=== PATIENT | male | born 1945 | race Caucasian/White ===

== ENCOUNTER 2018-03-19 05:19 | Emergency (ER) | payer MEDICARE, OTHER ==
--- NOTE | 2018-03-19 05:33 | ERPHSYRPT ---
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 he did not fall but "passed out" brieflywhile sitting on the toilet. pt pt is a [facility] pt. pt was brought into ED by EMS. SBP by EMS 80's. pt states similar episode in October 2017. Unknown why this happened. no dx provided after normal workup. pt denies headache, visual changes, cp, soa or abd pain. he denies cough. pt has not taken his medication this am. he has no n/v/d. he states he is sleepy at this time. BS 133. pt has had a CABG and cardiac stents placed in the past. (YAO RAY) Allergies/Adverse Reactions: codeine Allergy (Verified 03/19/18 05:37) Home Medications: Esomeprazole Magnesium [Nexium] 10 mg PO DAILY PRN PRN 02/03/16 [History] Insulin Glargine [Lantus Insulin] 40 unit SQ BID 02/03/16 [History] Irbesartan 150 mg [Avapro 150 MG] 150 mg PO DAILY 02/03/16 [History] Metformin HCl 1000 mg [Glucophage 1000 MG] 1,000 mg PO BID 02/03/16 [History] Aspirin EC 81 mg [Ecotrin 81 mg] 81 mg PO DAILY 03/19/18 [History] Carvedilol 6.25 mg [Coreg 6.25 MG] 6.25 mg PO BID 03/19/18 [History] Clopidogrel Bisulfate 75 mg [PLAVIX 75 MG Tablet] 75 mg PO DAILY 03/19/18 [History] Isosorbide Mononitrate 30 mg [Imdur 30 MG] 30 mg PO DAILY 03/19/18 [History ] Metformin HCl [Metformin HCl ER] 1,000 mg PO DAILY 03/19/18 [History] Ranolazine 500 MG [Ranexa 500 MG] 1,000 mg PO BID 03/19/18 [History] - Past Medical History Pertinent Past Medical History: Yes Neurological History: No Pertinent History ENT History: No Pertinent History Cardiac History: High Cholesterol, Hypertension, Myocardial Infarction (HI) Respiratory History: No Pertinent History Endocrine Medical History: Diabetes Type II Musculoskeletal History: No Pertinent History GI Medical History: GERD History: No Pertinent History Psycho-Social History: No Pertinent History Male Reproductive Disorders: No Pertinent History - Past Surgical History Past Surgical History: Yes Cardiac: CABG, Cardiac Catheterization, Cardiac Stent Respiratory: No Pertinent History Gastrointestinal: Appendectomy Genitourinary: No Pertinent History Musculoskeletal: No Pertinent History Male Surgical History: No Pertinent History - Social History Smoking Status: Never smoker Exposure to second hand smoke: No Alcohol Use: None Drug Use: none Patient Lives Alone: No Significant Family History: no pertinent family hx <YAO RAY - Last Filed: 03/19/18 07:06> - Review of Systems Constitutional: No Symptoms, No Fever, No Chills Eyes: No Symptoms, No Discharge, No Eye Pain, No Vision Changes Ears, Nose, & Throat: No Symptoms, No Ear Pain, No Nose Congestion, No Nose Discharge Respiratory: No Symptoms Cardiac: Syncope, No Chest Pain, No Palpitations Abdominal/Gastrointestinal: Nausea, No Abdominal Pain, No Vomiting, No Diarrhea , No Constipation Genitourinary Symptoms: No Symptoms, No Dysuria, No Frequency, No Hematuria, No Flank Pain Musculoskeletal: No Symptoms Skin: No Symptoms Neurological: No Symptoms, No Dizziness Psychological: No Symptoms Endocrine: No Symptoms Hematologic/Lymphatic: No Symptoms Immunological/Allergic: No Symptoms All Other Systems: Reviewed and Negative <YAO RAY - Last Filed: 03/19/18 07:06> Physical Exam - [place] Coma Scale Best Eye Response ([place]): (4) open spontaneously Best Verbal Response ([place]): (5) oriented Best Motor Response ([place]): (6) obeys commands [place] Total: 15 - Physical Exam General Appearance: mild distress, alert Eye Exam: bilateral eye: normal inspection, PERRL, EOMI Ears, Nose, Throat Exam: normal ENT inspection, TMs normal, pharynx normal, moist mucous membranes Neck Exam: normal inspection, non-tender, supple, full range of motion Respiratory: normal breath sounds, lungs clear, airway intact, No chest tenderness, No respiratory distress, No accessory muscle use, No rhonchi, No wheezing, No stridor Cardiovascular: regular rate/rhythm, normal heart sounds, normal peripheral pulses Gastrointestinal: soft, normal bowel sounds, No tenderness, No guarding, No rebound Rectal Exam: not done Back Exam: normal inspection, normal range of motion, No CVA tenderness, No vertebral tenderness Extremity Exam: normal inspection, normal range of motion, pelvis stable Mental Status: alert, 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, 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 Exam: normal hearing, normal speech, PERRL, tongue midline Coordination/Gait: normal finger to nose, abnormal gait (unsteady per ems) Motor/Sensory: no motor deficit, no sensory deficit Skin Exam: warm, dry, petechiae (new facial petechiae per pts spouse) SpO2 Interpretation: normal Oxygen Delivery: Room Air <YAO RAY - Last Filed: 03/19/18 07:06> - Nursing Vital Signs Nursing Vital Signs: Initial Vital Signs Temperature 97.1 F 03/19/18 05:20 Pulse Rate 68 03/19/18 05:20 Respiratory Rate 18 03/19/18 05:20 Blood Pressure 101/66 03/19/18 05:20 O2 Sat by Pulse Oximetry 97 03/19/18 05:20 Pain Scale Pain Intensity 0 - Course Nursing assessment & vital signs reviewed: Yes EKG Interpreted by Me: RATE (71), Sinus Rhythm, Left Presto Deviation, NORMAL INTERVALS, 1st degree AV Block, NORMAL QRS, Other (no acute st elevation) <YAO RAY - Last Filed: 03/19/18 07:06> - Radiology Exams Chest X-ray Interpretation: Interpreted by me, Negative (comp 2V chest 11/08/16.) <SAUL SMITH - Last Filed: 03/19/18 07:51> Ordered Tests: Active Orders 24 hr Category Date Time Status Clean Catch Urine Specimen STAT Care 03/19/18 05:48 Active EKG-ER Only STAT Care 03/19/18 05:48 Active Rubio [Catheter-[place] Rubio] STAT Care 03/19/18 07:26 Active IV Insertion STAT Care 03/19/18 05:48 Active Pulse Oximetry (ED) STAT Care 03/19/18 05:48 Active CHEST 1 VIEW (PORTABLE) Stat Exams 03/19/18 06:15 Taken HEAD WITHOUT CONTRAST [CT] Stat Exams 03/19/18 06:16 Ordered CBC W DIFF Stat Lab 03/19/18 05:50 Completed CMP Stat Lab 03/19/18 05:50 Completed NT PRO BNP Stat Lab 03/19/18 05:50 Completed PROTIME WITH INR Stat Lab 03/19/18 05:50 Completed TROPONIN Q3H Lab 03/19/18 05:50 Completed TROPONIN Q3H Lab 03/19/18 09:00 Ordered TROPONIN Q3H Lab 03/19/18 12:00 Ordered TROPONIN Q3H Lab 03/19/18 15:00 Ordered TROPONIN Q3H Lab 03/19/18 18:00 Ordered TROPONIN Q3H Lab 03/19/18 21:00 Ordered UA W/RFX UR CULTURE Stat Lab 03/19/18 07:13 Completed Medication Summary Generic Name Dose Route Start Last Admin Trade Name Freq PRN Reason Stop Dose Admin Sodium Chloride 1,000 mls @ 100 mls/hr 03/19/18 06:00 03/19/18 05:55 Sodium Chloride 0.9% 1000 Ml IV 04/18/18 05:59 100 mls/hr .Q10H MALICK Administration Dopamine HCl/Dextrose 250 mls @ 17.435 mls/hr 03/19/18 06:32 03/19/18 07:06 Dopamine 400 Mg/D5w 250ml Premix IV 04/18/18 06:31 7.5 mcg/kg/min .[id number] PRN 26.152 mls/hr SEVERE HYPOTENSION Titration Protocol 5 MCG/KG/MIN Discontinued Medications Generic Name Dose Route Start Last Admin Trade Name Freq PRN Reason Stop Dose Admin Famotidine Confirm 03/19/18 07:16 Pepcid 20 Mg Vial Administered 03/19/18 07:17 Dose 20 mg IV .STK-MED ONE Famotidine 20 mg 03/19/18 07:26 03/19/18 07:31 Pepcid 20 Mg Vial IV 03/19/18 07:27 20 mg STAT ONE Administration Ondansetron HCl 4 mg 03/19/18 05:49 03/19/18 05:55 Zofran 4 Mg/2 Ml Vial IV 03/19/18 05:50 4 mg STAT ONE Administration Ondansetron HCl Confirm 03/19/18 05:50 Zofran 4 Mg/2 Ml Vial Administered 03/19/18 05:51 Dose 4 mg .ROUTE .STK-MED ONE Ondansetron HCl 4 mg 03/19/18 06:51 03/19/18 06:55 Zofran 4 Mg/2 Ml Vial IV 03/19/18 06:52 4 mg STAT ONE Administration Ondansetron HCl Confirm 03/19/18 06:53 Zofran 4 Mg/2 Ml Vial Administered 03/19/18 06:54 Dose 4 mg .ROUTE .STK-MED ONE Lab/Rad Data: Laboratory Result Diagrams 03/19/18 05:50 03/19/18 05:50 Laboratory Results 03/19/18 03/19/18 03/19/18 Range/Units 07:13 05:50 05:50 WBC (4.0-10.5) K/mm3 RBC (4.1-5.6) M/mm3 Hgb (12.5-18.0) gm/dl Hct (42-50) % MCV (78-100) fl MCH (26-32) pg MCHC (32-36) g/dl RDW (11.5-14.0) % Plt Count (150-450) K/mm3 MPV (6-9.5) fl Gran % (36.0-66.0) % Eos # (Auto) (0-0.5) Absolute Lymphs (auto) (1.0-4.6) Absolute Monos (auto) (0.0-1.3) Lymphocytes % (24.0-44.0) % Monocytes % (0.0-12.0) % Eosinophils % (0.00-5.0) % Basophils % (0.0-0.4) % Absolute Granulocytes (1.4-6.9) Basophils # (0-0.4) PT 15.5 H (8.83-12.87) SECONDS INR 1.33 (0.8-3.0) Sodium (137-145) mmol/L Potassium (3.5-5.1) mmol/L Chloride (98-107) mmol/L Carbon Dioxide (22-30) mmol/L Anion Gap (5-15) MEQ/L BUN (9-20) mg/dL Creatinine (0.66-1.25) mg/dL Estimated GFR ML/MIN Glucose (74-106) mg/dL Calcium (8.4-10.2) mg/dL Total Bilirubin (0.2-1.3) mg/dL AST (17-59) U/L ALT (0-50) U/L Alkaline Phosphatase (38-126) U/L Troponin I < 0.012 (0.000-0.034) ng/mL NT-Pro-B Natriuret Pep (0-900) pg/mL Serum Total Protein (6.3-8.2) g/dL Albumin (3.5-5.0) g/dL Urine Color YELLOW (YELLOW) Urine Appearance CLEAR (CLEAR) Urine pH 6.0 (5-6) Ur Specific [place] 1.011 (1.005-1.025) Urine Protein NEGATIVE (Negative) Urine Ketones NEGATIVE (NEGATIVE) Urine Blood NEGATIVE (0-5) Gaurav/ul Urine Nitrite NEGATIVE (NEGATIVE) Urine Bilirubin NEGATIVE (NEGATIVE) Urine Urobilinogen NEGATIVE (0-1) mg/dL Ur Leukocyte Esterase NEGATIVE (NEGATIVE) Urine WBC (Auto) NONE SEEN (0-5) /HPF Urine RBC (Auto) NONE (0-2) /HPF U Epithel Cells (Auto) NONE (FEW) /HPF Urine Bacteria (Auto) NONE SEEN (NEGATIVE) /HPF Urine Mucus (Auto) SLIGHT (NEGATIVE) /HPF Urine Culture Reflexed NO (NO) Urine Glucose NEGATIVE (NEGATIVE) mg/dL 03/19/18 03/19/18 Range/Units 05:50 05:50 WBC 13.5 H (4.0-10.5) K/mm3 RBC 4.55 (4.1-5.6) M/mm3 Hgb 13.7 (12.5-18.0) gm/dl Hct 41.4 L (42-50) % MCV 91.0 (78-100) fl MCH 30.1 (26-32) pg MCHC 33.1 (32-36) g/dl RDW 14.2 H (11.5-14.0) % Plt Count 242 (150-450) K/mm3 MPV 10.9 H (6-9.5) fl Gran % 68.4 H (36.0-66.0) % Eos # (Auto) 0.56 H (0-0.5) Absolute Lymphs (auto) 2.50 (1.0-4.6) Absolute Monos (auto) 1.16 (0.0-1.3) Lymphocytes % 18.5 L (24.0-44.0) % Monocytes % 8.6 (0.0-12.0) % Eosinophils % 4.1 (0.00-5.0) % Basophils % 0.4 (0.0-0.4) % Absolute Granulocytes 9.22 H (1.4-6.9) Basophils # 0.06 (0-0.4) PT (8.83-12.87) SECONDS INR (0.8-3.0) Sodium 140 (137-145) mmol/L Potassium 4.4 (3.5-5.1) mmol/L Chloride 104 (98-107) mmol/L Carbon Dioxide 23 (22-30) mmol/L Anion Gap 17.7 H (5-15) MEQ/L BUN 19 (9-20) mg/dL Creatinine 1.00 (0.66-1.25) mg/dL Estimated GFR > 60.0 ML/MIN Glucose 117 H (74-106) mg/dL Calcium 9.5 (8.4-10.2) mg/dL Total Bilirubin 0.50 (0.2-1.3) mg/dL AST 27 (17-59) U/L ALT 24 (0-50) U/L Alkaline Phosphatase 60 (38-126) U/L Troponin I (0.000-0.034) ng/mL NT-Pro-B Natriuret Pep 373 (0-900) pg/mL Serum Total Protein 7.0 (6.3-8.2) g/dL Albumin 4.2 (3.5-5.0) g/dL Urine Color (YELLOW) Urine Appearance (CLEAR) Urine pH (5-6) Ur Specific [place] (1.005-1.025) Urine Protein (Negative) Urine Ketones (NEGATIVE) Urine Blood (0-5) Gaurav/ul Urine Nitrite (NEGATIVE) Urine Bilirubin (NEGATIVE) Urine Urobilinogen (0-1) mg/dL Ur Leukocyte Esterase (NEGATIVE) Urine WBC (Auto) (0-5) /HPF Urine RBC (Auto) (0-2) /HPF U Epithel Cells (Auto) (FEW) /HPF Urine Bacteria (Auto) (NEGATIVE) /HPF Urine Mucus (Auto) (NEGATIVE) /HPF Urine Culture Reflexed (NO) Urine Glucose (NEGATIVE) mg/dL - Progress Progress: re-examined <YAO RAY - Last Filed: 03/19/18 07:06> - Progress Progress: re-examined Counseled pt/family regarding: diagnosis, rad results <SAUL SMITH - Last Filed: 03/19/18 07:51> - Progress Progress Note: 03/19/18 06:50 pts sbp was 101 on arrival. sbp dropped to 70's. will start dopamine. 03/19/18 07:07 signed out care and transfer of care of pt to dr. smith. i reviewed pt hx, condition and tests results pending. he accepts pt. (YAO RAY) 03/19/18 07:42 Pt care discussed and care accepted from Dr Ray at 07:00. Discussed pt care with Dr Vásquez at [facility] who accepts pt. Pt on dopamine. 03/19/18 07:48 Pt on dopamine 7.5 and pt c/o CP and wants NG. I did not given pt NG because BP is 75/34. I did not give MSO4 due to low BP. Decreased dopamine to 5. (SAUL SMITH) <YAO RYA - Last Filed: 03/19/18 07:06> - Departure Time of Disposition: 07:47 Departure Disposition: Transfer (Transfer to [facility] per Dr Vásquez.) Critical Care Time: Yes Critical Care Time(excluding separately billable procedures): 30-74 minutes <SAUL SMITH - Last Filed: 03/19/18 07:51> - Departure Clinical Impression: Syncope, Hypotension, Vomiting Condition: Fair Referrals: [facility]OSP[facility] [Primary Care Provider] -
[2018-03-19] MEDS ORDERED: Zofran 4 MG/2 ML VIAL ONE ×2 (05:50→06:53)
[2018-03-19] MEDS ORDERED: Sodium Chloride 0.9% 1000 ML 1,000 ML ONE (05:50)
[2018-03-19] MEDS: Zofran 4 MG/2 ML VIAL IV ONE ×2 (05:55→06:55)
[2018-03-19] MEDS: Sodium Chloride 0.9% 1000 ML 1,000 ML IV SCH (05:55)
[2018-03-19 05:56] LABS: BASOPHIL % 0.4 % (0.0-0.4); Basophil (Absolute #) 0.06 (0-0.4); Eosinophil % 4.1 % (0.00-5.0); Eosinophil (Absolute #) 0.56 (0-0.5); Granulocyte Absolute (ANC) 9.22 (1.4-6.9); Granulocytes % 68.4 % (36.0-66.0); Hematocrit 41.4 % (42-50); Hemoglobin 13.7 gm/dl (12.5-18.0); Lymphocytes % 18.5 % (24.0-44.0); Mean Corpuscular Hemoglobin 30.1 pg (26-32); Mean Corpuscular Hgb Concent. 33.1 g/dl (32-36); Mean Platelet Volume 10.9 fl (6-9.5); Monocyte (Absolute #) 1.16 (0.0-1.3); Monocytes % 8.6 % (0.0-12.0); Platelet Count 242 K/mm3 (150-450); Red Blood Count 4.55 M/mm3 (4.1-5.6); Red Cell Distribution Width 14.2 % (11.5-14.0); White Blood Count 13.5 K/mm3 (4.0-10.5)
[2018-03-19 06:11] LABS: INR 1.33 (0.8-3.0)
[2018-03-19] MEDS ORDERED: Dopamine 400 MG/D5W 250ML PREMIX 250 ML IV ONE (06:34)
[2018-03-19 06:36] LABS: ALBUMIN 4.2 g/dL (3.5-5.0); ALKALINE PHOSPHATASE 60 U/L (38-126); ANION GAP 17.7 MEQ/L (5-15); BLOOD UREA NITROGEN 19 mg/dL (9-20); CHLORIDE 104 mmol/L (98-107); Calcium 9.5 mg/dL (8.4-10.2); Carbon Dioxide 23 mmol/L (22-30); Glucose 117 mg/dL (74-106); NT PRO BNP 373 pg/mL (0-900); Potassium 4.4 mmol/L (3.5-5.1); SGOT/AST 27 U/L (17-59); SGPT/ALT 24 U/L (0-50); SODIUM 140 mmol/L (137-145)
[2018-03-19] MEDS: Dopamine 400 MG/D5W 250ML PREMIX 250 ML IV PRN (06:37)
[2018-03-19] MEDS ORDERED: Pepcid 20 MG VIAL IV ONE (07:16)
[2018-03-19 07:24] VITALS: PULSE 87
[2018-03-19 07:26] LABS: Appearance CLEAR (CLEAR); Bilirubin NEGATIVE (NEGATIVE); Blood NEGATIVE Ery/ul (0-5); Glucose NEGATIVE (NEGATIVE); Ketones NEGATIVE (NEGATIVE); Leukocyte Esterase NEGATIVE (NEGATIVE); Nitrite NEGATIVE (NEGATIVE); Protein,Urine Dip NEGATIVE (Negative); Specific Gravity 1.011 (1.005-1.025); Urobilinogen NEGATIVE mg/dL (0-1)
[2018-03-19] MEDS: Pepcid 20 MG VIAL IV ONE (07:31)
[2018-03-19] MEDS: Sodium Chloride 0.9% 1000 ML 1,000 ML IV STA (07:47)
--- NOTE | 2018-03-19 07:56 | XRAY ---
Indication: Cough and emesis. Elevated WBC. Comparison: November 08, 2016. Portable chest unchanged again with left upper lobe fibrosis/scarring and CABG surgery. Remaining heart and lungs unremarkable. Bony thorax intact again with minimal degenerative changes. No new/acute findings.
[2018-03-19 08:08] VITALS: BP 76/53; O2SAT 98
== END 2018-03-19 08:07 | disposition short-term general hospital (02) ==
LOC: ED 05:19
DX: R55 Syncope and collapse (principal); I95.9 Hypotension, unspecified; R42 Dizziness and giddiness; R11.2 Nausea with vomiting, unspecified; Z95.1 Presence of aortocoronary bypass graft; Z79.01 Long term (current) use of anticoagulants; Z79.899 Other long term (current) drug therapy; E11.9 Type 2 diabetes mellitus without complications; Z79.4 Long term (current) use of insulin
CPT/HCPCS: 36415; 51702; 71045; 80053; 81001; 83880; 84484; 85025; 85610; 93005; 96360; 96361; 96365; 96374; 96375; 96376; 99285; 99291; 99292; J1265; J2405

== ENCOUNTER 2018-04-16 11:54 | Emergency (ER) | payer MEDICARE, OTHER ==
--- NOTE | 2018-04-16 12:38 | ERPHSYRPT ---
- History of Present Illness Time Seen by Provider: 04/16/18 12:36 Source: patient, family Exam Limitations: no limitations Patient Subjective Stated Complaint: pt reports passing out at home 2 days ago, reports he fell into his solid oak bed causing the bed to break. states that he only has pain to his r shoulder/rib area when he coughs. pt reports that he is under the care of his physician for syncope. pt is currently wearing a heart monitor. Triage Nursing Assessment: pt is aox3, pupils perrl, resps easy and non labored , lung sounds are clear throughout all blanc, radial pulses strong and equal, pt skin is pink warm dry. no injury noted to the right shoulder, skin is intact , abrasion noted to the left knee, healing skin tear noted to the right hand. Physician History: The patient is a 72-year-old male with his complaining that he fell 2 days ago onto the foot board of his bed, striking his upper right chest, causing severe pain. He is being evaluated by his backside grinder for syncope. The backside grinder wants him to have a chest x-ray to look for fractures of ribs and for a pneumothorax. The patient is not here for evaluation of syncope. The patient states it hurts when he coughs or breathes deeply. His past medical history is significant for syncope, CABG, hypertension, diabetes. Occurred: days ago (2) Reason for Fall: lost balance, fell from standing pos Injuries/Pain Location: chest Loss of Consciousness: no loss of consciousness Quality: sharpness Severity of Pain-Max: moderate Severity of Pain-Current: moderate Modifying Factors: Improves With: movement Associated Symptoms (Fall): chest pain Allergies/Adverse Reactions: codeine Allergy (Verified 04/16/18 12:24) Home Medications: Esomeprazole Magnesium [Nexium] 10 mg PO DAILY PRN PRN 02/03/16 [History] Insulin Glargine [Lantus Insulin] 40 unit SQ BID 02/03/16 [History] Irbesartan 150 mg [Avapro 150 MG] 150 mg PO DAILY 02/03/16 [History] Metformin HCl 1000 mg [Glucophage 1000 MG] 1,000 mg PO BID 02/03/16 [History] Aspirin EC 81 mg [Ecotrin 81 mg] 81 mg PO DAILY 03/19/18 [History] Carvedilol 6.25 mg [Coreg 6.25 MG] 6.25 mg PO BID 03/19/18 [History] Clopidogrel Bisulfate 75 mg [PLAVIX 75 MG Tablet] 75 mg PO DAILY 03/19/18 [History] Isosorbide Mononitrate 30 mg [Imdur 30 MG] 30 mg PO DAILY 03/19/18 [History ] Metformin HCl [Metformin HCl ER] 1,000 mg PO DAILY 03/19/18 [History] Ranolazine 500 MG [Ranexa 500 MG] 1,000 mg PO BID 03/19/18 [History] Hx Tetanus, Diphtheria Vaccination/Date Given: Yes Hx Influenza Vaccination/Date Given: Yes Hx Pneumococcal Vaccination/Date Given: Yes Immunizations Up to Date: Yes - Review of Systems Constitutional: No Fever, No Chills Eyes: No Symptoms Ears, Nose, & Throat: No Symptoms Respiratory: No Cough, No Dyspnea Cardiac: Chest Pain Abdominal/Gastrointestinal: No Abdominal Pain, No Nausea, No Vomiting, No Diarrhea Genitourinary Symptoms: No Dysuria Musculoskeletal: Fall, Injury Skin: No Rash Neurological: No Dizziness, No Focal Weakness, No Sensory Changes Psychological: No Symptoms Endocrine: No Symptoms Hematologic/Lymphatic: No Symptoms Immunological/Allergic: No Symptoms All Other Systems: Reviewed and Negative - Past Medical History Pertinent Past Medical History: Yes Neurological History: No Pertinent History ENT History: No Pertinent History Cardiac History: High Cholesterol, Hypertension, Myocardial Infarction ([place]) Respiratory History: No Pertinent History Endocrine Medical History: Diabetes Type II Musculoskeletal History: No Pertinent History GI Medical History: GERD History: No Pertinent History Psycho-Social History: No Pertinent History Male Reproductive Disorders: No Pertinent History - Past Surgical History Past Surgical History: Yes Cardiac: CABG, Cardiac Catheterization, Cardiac Stent Respiratory: No Pertinent History Gastrointestinal: Appendectomy Genitourinary: No Pertinent History Musculoskeletal: No Pertinent History Male Surgical History: No Pertinent History Other Surgical History: 5 vessel bypass, 3 stents - Social History Smoking Status: Never smoker Exposure to second hand smoke: No Alcohol Use: None Drug Use: none Patient Lives Alone: No Significant Family History: no pertinent family hx - Nursing Vital Signs Nursing Vital Signs: Initial Vital Signs Temperature 97.6 F 04/16/18 12:02 Pulse Rate 90 04/16/18 12:02 Respiratory Rate 18 04/16/18 12:02 Blood Pressure 140/84 04/16/18 12:02 O2 Sat by Pulse Oximetry 97 04/16/18 12:02 Pain Scale Pain Intensity 0 - [place] Coma Score Best Eye Response ([place]): (4) open spontaneously Best Verbal Response ([place]): (5) oriented Best Motor Response ([place]): (6) obeys commands [place] Total: 15 - Physical Exam General Appearance: no apparent distress, alert Head Injury: no evidence of injury Eye Exam: PERRL/EOMI ENT Exam: airway nml Neck Exam: normal inspection, No tenderness Respiratory/Chest Exam: chest tenderness (right upper anterior chest wall) Cardiovascular Exam: normal heart sounds, regular rate/rhythm Gastrointestinal Exam: soft, No tenderness, No distention, No guarding, No ecchymosis Rectal Exam: not done Back Exam: normal inspection, No vertebral tenderness Extremity Exam: normal inspection, normal range of motion, pelvis stable, No deformities Neurologic Exam: alert, 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, cooperative, sensation nml, No motor deficits Skin Exam: normal color, warm, dry, ecchymosis (faint ecchymosis to right upper anterior chest) SpO2 Interpretation: normal SpO2: 97 Oxygen Delivery: Room Air - Radiology Exams Chest X-ray Interpretation: Interpreted by me, Negative, No Fracture, No Pneumothorax , Other (neg 2V chest. 1 broken sternal wire, comp 1V chest from 03/19/18 also has 1 broken sternal wire ) Right Ribs X-ray Interpretation: Interpreted by me, Negative, No Fracture, No Pneumothorax Ordered Tests: Active Orders 24 hr Category Date Time Status CHEST 2 VIEWS (PA AND LAT) Stat Exams 04/16/18 12:40 Taken RIBS UNILATERAL Stat Exams 04/16/18 12:39 Taken - Progress Counseled pt/family regarding: rad results - Departure Time of Disposition: 13:31 Departure Disposition: Home Clinical Impression: Chest wall contusion Condition: Stable Critical Care Time: No Referrals: [facility]OSP[facility] [Primary Care Provider] - Additional Instructions: You have a contusion to the right side of your chest wall. The x-rays did not show any broken bones nor did it show a pneumothorax. You have one of your 7 sternal wires that has a break in it. Previous chest x-rays also had a broken chest wire. You can take Tylenol 1000 mg every 6-8 hours as needed for pain. Follow-up as needed.
[2018-04-16 13:23] VITALS: BP 141/87; PULSE 75
[2018-04-16 13:31] VITALS: O2SAT 97
--- NOTE | 2018-04-16 19:20 | XRAY ---
Indication: Pain following fall. Comparison: March 19, 2018. PA/lateral chest again demonstrates left upper lobe fibrosis/scarring with new focus left base and stable right apical calcified granuloma. Remaining lungs clear. Heart is not enlarged again with CABG surgery. Bony thorax intact again with mild degenerative changes.
--- NOTE | 2018-04-16 19:23 | XRAY ---
Indication: Pain following fall. Comparison: None 2 views of the right ribs demonstrates mild AC degenerative arthropathy and CABG surgery. No other bony, articular, or soft tissue abnormalities.
== END 2018-04-16 13:59 | disposition home or self-care (01) ==
LOC: ED 11:54
DX: S20.211A Contusion of right front wall of thorax, initial encounter (principal); W01.190A Fall on same level from slipping, tripping and stumbling with subsequent striking against furniture, initial encounter; Y92.003 Bedroom of unspecified non-institutional (private) residence as the place of occurrence of the external cause; Z95.1 Presence of aortocoronary bypass graft; E11.9 Type 2 diabetes mellitus without complications; Z79.4 Long term (current) use of insulin; Z79.01 Long term (current) use of anticoagulants; Z79.899 Other long term (current) drug therapy; I25.2 Old myocardial infarction; I10 Essential (primary) hypertension
CPT/HCPCS: 71046; 71100; 99283

== ENCOUNTER 2020-04-18 06:18 | Emergency (ER) | payer MEDICARE, OTHER ==
[2020-04-18] MEDS ORDERED: Zofran 4 MG/2 ML VIAL IV ONE (06:40)
[2020-04-18] MEDS ORDERED: MORPHINE SULFATE 4 MG INJ IV ONE ×2 (06:40→07:29)
[2020-04-18] MEDS ORDERED: PROTONIX 40 MG IV IV ONE ×2 (06:40→06:47)
[2020-04-18] MEDS ORDERED: Sodium Chloride 0.9% 1000 ML 1,000 ML IV SCH (06:45)
[2020-04-18] MEDS ORDERED: MORPHINE SULFATE 4 MG INJ ONE ×2 (06:47→07:38)
[2020-04-18] MEDS ORDERED: Zofran 4 MG/2 ML VIAL ONE (06:47)
[2020-04-18] MEDS ORDERED: Sodium Chloride 0.9% 1000 ML 1,000 ML ONE (06:47)
[2020-04-18 07:24] LABS: AMYLASE 51 U/L (30-110); LIPASE 41 U/L (23-300)
[2020-04-18 07:25] LABS: ALBUMIN 4.2 g/dL (3.5-5.0); ALKALINE PHOSPHATASE 70 U/L (38-126); ANION GAP 11.8 MEQ/L (5-15); Absolute Neutrophil Ct (ANC) 11.01 (1.4-6.9); BASOPHIL % 0.3 % (0.0-0.4); BLOOD UREA NITROGEN 17 mg/dL (9-20); Basophil (Absolute #) 0.04 (0-0.4); CHLORIDE 103 mmol/L (98-107); Calcium 9.6 mg/dL (8.4-10.2); Carbon Dioxide 25 mmol/L (22-30); Creatinine 1 1.08 mg/dL (0.66-1.25); EST GLOMERULAR FILTRATION RATE > 60.0 ML/MIN; Eosinophil % 0.5 % (0.00-5.0); Eosinophil (Absolute #) 0.06 (0-0.5); Glucose 172 mg/dL (74-106); Hematocrit 47.2 % (42-50); Hemoglobin 15.6 gm/dl (12.5-18.0); Lymphocyte (Absolute #) 0.98 (1.0-4.6); Lymphocytes % 7.8 % (24.0-44.0); Mean Cell Volume 92.7 fl (78-100); Mean Corpuscular Hemoglobin 30.6 pg (26-32); Mean Corpuscular Hgb Concent. 33.1 g/dl (32-36); Mean Platelet Volume 10.6 fl (7.5-11.0); Monocyte (Absolute #) 0.46 (0.0-1.3); Monocytes % 3.7 % (0.0-12.0); Neutrophil % 87.7 % (36.0-66.0); Platelet Count 196 K/mm3 (150-450); Potassium 4.4 mmol/L (3.5-5.1); Red Blood Count 5.09 M/mm3 (4.1-5.6); Red Cell Distribution Width 13.8 % (11.5-14.0); SGOT/AST 28 U/L (17-59); SGPT/ALT 24 U/L (0-50); SODIUM 136 mmol/L (137-145); White Blood Count 12.6 K/mm3 (4.0-10.5)
--- NOTE | 2020-04-18 08:01 | ERPHSYRPT ---
- History of Present Illness Time Seen by Provider: 04/18/20 07:00 Historian: patient Exam Limitations: no limitations Patient Subjective Stated Complaint: "My stomach pain is worse." Triage Nursing Assessment: Patient reported acute onset crescendo type epigastric pain around 1900 on 04/17/20 described as a pressure and non- radiating. Pain constant throughout the night and worsening around midnight. Denied alleviating/aggravating factors. Reported associated nausea, vomiting, and diarrhea. Denied shortness of breath. Reported concern for significant cardiac history. Head atraumatic normocephalic. Oral mucosa pink/dry. Neck supple non-tender without JVD/tracheal deviation. Symmetrical chest expansion Heart tones reguar rate and rhythm S1 and S2 without extra sounds. Lungs clear to auscultation throughout all lung blanc. Abdomen soft non-distened with tenderness to palpation to the epigastrium. No noted guarding, rebound distention, or hepatosplenomegaly. Bowel sounds hypoactive. Noted hernia to the epigastric area which the patient reported to be normal since 2007. Peripheral pulses +2 bilateral. No noted dependent edema. Physician History: 74 years old male with history of coronary artery disease status post stenting/CABG, hypertension, hyperlipidemia, diabetes mellitus with insulin pump fairly controlled presented in the ER with gradually worsening upper abdominal moderate to severe intensity cramping/dull pain, aggravated with movements, associated with nausea and 2-3 episodes of loose stool. Patient is given morphine by Dr. Bolden before I saw him and his pain is dropped from 8-4 now an d nausea is also better with Zofran. No fever or chills reported. Denies any sick contact. Denies any chest pain palpitations or shortness of breath. Timing/Duration: yesterday, gradual onset, worse Activities at Onset: rest Quality: cramping, dullness Abdominal Pain Onset Location: RUQ, epigastric, periumbilical Pain Radiation: no radiation Severity of Pain-Max: severe Severity of Pain-Current: moderate Modifying Factors: Worsens With: position Associated Symptoms: diarrhea, fatigue, nausea, No back, No chest pain, No fever/chills Previous symptoms: no prior history Allergies/Adverse Reactions: codeine Allergy (Verified 04/18/20 06:21) Home Medications: Esomeprazole Magnesium [Nexium] 10 mg PO DAILY PRN PRN 02/03/16 [History] Insulin Glargine [Lantus Insulin] 40 unit SQ BID 02/03/16 [History] Irbesartan 150 mg [Avapro 150 MG] 150 mg PO DAILY 02/03/16 [History] Metformin HCl 1000 mg [Glucophage 1000 MG] 1,000 mg PO BID 02/03/16 [History] Aspirin EC 81 mg [Ecotrin 81 mg] 81 mg PO DAILY 03/19/18 [History] Carvedilol 6.25 mg [Coreg 6.25 MG] 6.25 mg PO BID 03/19/18 [History] Clopidogrel Bisulfate 75 mg [PLAVIX 75 MG Tablet] 75 mg PO DAILY 03/19/18 [History] Isosorbide Mononitrate 30 mg [Imdur 30 MG] 30 mg PO DAILY 03/19/18 [History] Metformin HCl [Metformin HCl ER] 1,000 mg PO DAILY 03/19/18 [History] Ranolazine 500 MG [Ranexa 500 MG] 1,000 mg PO BID 03/19/18 [History] Hx Tetanus, Diphtheria Vaccination/Date Given: Yes Hx Influenza Vaccination/Date Given: Yes Hx Pneumococcal Vaccination/Date Given: Yes Travel Risk - International Travel Have you traveled outside of the country in past 3 weeks: No - Coronavirus Screening Are you exhibiting any of the following symptoms?: Yes Symptoms: Vomiting/Diarrhea Close contact with a COVID-19 positive Pt in past 14-21 Days: No - Review of Systems Constitutional: No Symptoms Eyes: No Symptoms Ears, Nose, & Throat: No Symptoms Respiratory: No Symptoms Cardiac: No Symptoms Abdominal/Gastrointestinal: Abdominal Pain, Nausea, Diarrhea Genitourinary Symptoms: No Symptoms Musculoskeletal: No Symptoms Skin: No Symptoms Neurological: No Symptoms Psychological: No Symptoms Endocrine: No Symptoms Hematologic/Lymphatic: No Symptoms - Past Medical History Pertinent Past Medical History: Yes Neurological History: No Pertinent History ENT History: No Pertinent History Cardiac History: High Cholesterol, Hypertension, Myocardial Infarction (OR) Respiratory History: No Pertinent History Endocrine Medical History: Diabetes Type II Musculoskeletal History: No Pertinent History GI Medical History: GERD History: No Pertinent History Psycho-Social History: No Pertinent History Male Reproductive Disorders: No Pertinent History - Past Surgical History Past Surgical History: Yes Cardiac: CABG, Cardiac Catheterization, Cardiac Stent Respiratory: No Pertinent History Gastrointestinal: Appendectomy Genitourinary: No Pertinent History Musculoskeletal: No Pertinent History Male Surgical History: No Pertinent History Other Surgical History: 5 vessel bypass, 3 stents - Social History Smoking Status: Never smoker Exposure to second hand smoke: No Alcohol Use: None Drug Use: none Patient Lives Alone: Yes Significant Family History: no pertinent family hx - Nursing Vital Signs Nursing Vital Signs: Initial Vital Signs Temperature 97.7 F 04/18/20 06:18 Pulse Rate 76 04/18/20 06:18 Respiratory Rate 12 04/18/20 06:18 Blood Pressure 174/98 04/18/20 06:18 O2 Sat by Pulse Oximetry 100 04/18/20 06:18 Pain Scale Pain Intensity 2 - Physical Exam General Appearance: no apparent distress, alert Eye Exam: PERRL/EOMI, eyes nml inspection Ears, Nose, Throat Exam: normal ENT inspection, TMs normal, pharynx normal Neck Exam: normal inspection, non-tender, supple, full range of motion Respiratory Exam: normal breath sounds, lungs clear Cardiovascular Exam: regular rate/rhythm, normal heart sounds Gastrointestinal/Abdomen Exam: soft, normal bowel sounds, tenderness (Epigastrium/right upper quadrant) Back Exam: normal inspection, normal range of motion Extremity Exam: normal inspection, normal range of motion Neurologic Exam: alert, 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, cooperative, cashier parking lot II-XII nml as tested Skin Exam: normal color SpO2 Interpretation: normal SpO2: 96 O2 Delivery: Room Air Ordered Tests: Active Orders 24 hr Category Date Time Status EKG-ER Only STAT Care 04/18/20 06:40 Completed IV Insertion STAT Care 04/18/20 06:40 Completed ABDOMEN AND PELVIS W/0 CONTRAS [CT] Stat Exams 04/18/20 07:17 Completed GALLBLADDER [US] Stat Exams 04/18/20 09:44 Taken AMYLASE Stat Lab 04/18/20 06:58 Completed CBC W DIFF Stat Lab 04/18/20 06:58 Completed CMP Stat Lab 04/18/20 06:58 Completed LIPASE Stat Lab 04/18/20 06:58 Completed Lactic Acid Stat Lab 04/18/20 06:40 Completed POCT GLUCOSE Stat Lab 04/18/20 12:00 Completed TROPONIN Q3H Lab 04/18/20 06:58 Completed TROPONIN Q3H Lab 04/18/20 09:45 Completed UA W/RFX UR CULTURE Stat Lab 04/18/20 09:00 Completed Medication Summary Discontinued Medications Generic Name Dose Route Start Last Admin Trade Name Richi PRN Reason Stop Dose Admin Hydrocodone Bitart/Acetaminophen 4 tab 04/18/20 11:36 04/18/20 11:47 [place] 5/325 Mg PO 04/18/20 11:37 4 tab SENT HOME W/ PATIENT ONE Administration Hydrocodone Bitart/Acetaminophen Confirm 04/18/20 11:42 [place] 5/325 Mg Administered 04/18/20 11:43 Dose 4 tab .ROUTE .STK-MED ONE Amoxicillin/Clavulanate Potassium 875 mg 04/18/20 11:29 04/18/20 11:40 Augmentin 875-125 Tablet PO 04/18/20 11:30 875 mg STAT ONE Administration Amoxicillin/Clavulanate Potassium 875 mg 04/18/20 22:00 04/18/20 11:47 Augmentin 875-125 Tablet PO 05/18/20 21:59 875 mg BID MALICK Administration Amoxicillin/Clavulanate Potassium Confirm 04/18/20 11:40 Augmentin 875-125 Tablet Administered 04/18/20 11:41 Dose 875 mg .ROUTE .STK-MED ONE Amoxicillin/Clavulanate Potassium Confirm 04/18/20 11:42 Augmentin 875-125 Tablet Administered 04/18/20 11:43 Dose 1,750 mg .ROUTE .STK-MED ONE Sodium Chloride 1,000 mls @ 100 mls/hr 04/18/20 06:45 04/18/20 06:51 Sodium Chloride 0.9% 1000 Ml IV 05/18/20 06:44 100 mls/hr .Q10H MALICK Administration Sodium Chloride Confirm 04/18/20 06:47 Sodium Chloride 0.9% 1000 Ml Administered 04/18/20 06:48 Dose 1,000 mls @ ud .ROUTE .STK-MED ONE Morphine Sulfate 4 mg 04/18/20 06:40 04/18/20 06:51 Morphine Sulfate 4 Mg Inj IV 04/18/20 06:41 4 mg STAT ONE Administration Morphine Sulfate Confirm 04/18/20 06:47 Morphine Sulfate 4 Mg Inj Administered 04/18/20 06:48 Dose 4 mg .ROUTE .STK-MED ONE Morphine Sulfate 4 mg 04/18/20 07:29 04/18/20 07:40 Morphine Sulfate 4 Mg Inj IV 04/18/20 07:30 4 mg STAT ONE Administration Morphine Sulfate Confirm 04/18/20 07:38 Morphine Sulfate 4 Mg Inj Administered 04/18/20 07:39 Dose 4 mg .ROUTE .STK-MED ONE Ondansetron HCl 4 mg 04/18/20 06:40 04/18/20 06:50 Zofran 4 Mg/2 Ml Vial IV 04/18/20 06:41 4 mg STAT ONE Administration Ondansetron HCl Confirm 04/18/20 06:47 Zofran 4 Mg/2 Ml Vial Administered 04/18/20 06:48 Dose 4 mg .ROUTE .STK-MED ONE Ondansetron HCl 4 mg 04/18/20 11:42 04/18/20 11:49 Zofran Odt 4 Mg PO 04/19/20 11:41 4 mg Q6H PRN PRN Administration NAUSEA/VOMITING Ondansetron HCl Confirm 04/18/20 11:48 Zofran Odt 4 Mg Administered 04/18/20 11:49 Dose 16 mg .ROUTE .STK-MED ONE Pantoprazole Sodium 40 mg 04/18/20 06:40 04/18/20 06:50 Protonix 40 Mg Iv IV 04/18/20 06:41 40 mg STAT ONE Administration Pantoprazole Sodium Confirm 04/18/20 06:47 Protonix 40 Mg Iv Administered 04/18/20 06:48 Dose 40 mg IV .STK-MED ONE Lab/Rad Data: Laboratory Result Diagrams 04/18/20 06:58 04/18/20 06:58 Laboratory Results 04/18/20 04/18/20 04/18/20 Range/Units 12:00 09:45 09:00 WBC (4.0-10.5) K/mm3 RBC (4.1-5.6) M/mm3 Hgb (12.5-18.0) gm/dl Hct (42-50) % MCV (78-100) fl MCH (26-32) pg MCHC (32-36) g/dl RDW (11.5-14.0) % Plt Count (150-450) K/mm3 MPV (7.5-11.0) fl Gran % (36.0-66.0) % Eos # (Auto) (0-0.5) Absolute Lymphs (auto) (1.0-4.6) Absolute Monos (auto) (0.0-1.3) Lymphocytes % (24.0-44.0) % Monocytes % (0.0-12.0) % Eosinophils % (0.00-5.0) % Basophils % (0.0-0.4) % Absolute Granulocytes (1.4-6.9) Basophils # (0-0.4) Sodium (137-145) mmol/L Potassium (3.5-5.1) mmol/L Chloride (98-107) mmol/L Carbon Dioxide (22-30) mmol/L Anion Gap (5-15) MEQ/L BUN (9-20) mg/dL Creatinine (0.66-1.25) mg/dL Estimated GFR ML/MIN Glucose (74-106) mg/dL POC Glucometer 147 H (74 to 106) mg/dL Lactic Acid (0.4-2.0) Calcium (8.4-10.2) mg/dL Total Bilirubin (0.2-1.3) mg/dL AST (17-59) U/L ALT (0-50) U/L Alkaline Phosphatase (38-126) U/L Troponin I < 0.012 (0.000-0.034) ng/mL Serum Total Protein (6.3-8.2) g/dL Albumin (3.5-5.0) g/dL Amylase (30-110) U/L Lipase (23-300) U/L Urine Color YELLOW (YELLOW) Urine Appearance CLEAR (CLEAR) Urine pH 5.0 (5-6) Ur Specific [place] 1.024 (1.005-1.025) Urine Protein NEGATIVE (Negative) Urine Ketones SMALL (NEGATIVE) Urine Blood NEGATIVE (0-5) Gaurav/ul Urine Nitrite NEGATIVE (NEGATIVE) Urine Bilirubin NEGATIVE (NEGATIVE) Urine Urobilinogen NEGATIVE (0-1) mg/dL Ur Leukocyte Esterase NEGATIVE (NEGATIVE) Urine WBC (Auto) NONE (0-5) /HPF Urine RBC (Auto) NONE (0-2) /HPF U Epithel Cells (Auto) NONE (FEW) /HPF Urine Bacteria (Auto) NONE (NEGATIVE) /HPF Urine Mucus (Auto) SLIGHT (NEGATIVE) /HPF Urine Culture Reflexed NO (NO) Urine Glucose >=500 (NEGATIVE) mg/dL 04/18/20 04/18/20 04/18/20 Range/Units 06:58 06:58 06:58 WBC (4.0-10.5) K/mm3 RBC (4.1-5.6) M/mm3 Hgb (12.5-18.0) gm/dl Hct (42-50) % MCV (78-100) fl MCH (26-32) pg MCHC (32-36) g/dl RDW (11.5-14.0) % Plt Count (150-450) K/mm3 MPV (7.5-11.0) fl Gran % (36.0-66.0) % Eos # (Auto) (0-0.5) Absolute Lymphs (auto) (1.0-4.6) Absolute Monos (auto) (0.0-1.3) Lymphocytes % (24.0-44.0) % Monocytes % (0.0-12.0) % Eosinophils % (0.00-5.0) % Basophils % (0.0-0.4) % Absolute Granulocytes (1.4-6.9) Basophils # (0-0.4) Sodium 136 L (137-145) mmol/L Potassium 4.4 (3.5-5.1) mmol/L Chloride 103 (98-107) mmol/L Carbon Dioxide 25 (22-30) mmol/L Anion Gap 11.8 (5-15) MEQ/L BUN 17 (9-20) mg/dL Creatinine 1.08 (0.66-1.25) mg/dL Estimated GFR > 60.0 ML/MIN Glucose 172 H (74-106) mg/dL POC Glucometer (74 to 106) mg/dL Lactic Acid (0.4-2.0) Calcium 9.6 (8.4-10.2) mg/dL Total Bilirubin 0.90 (0.2-1.3) mg/dL AST 28 (17-59) U/L ALT 24 (0-50) U/L Alkaline Phosphatase 70 (38-126) U/L Troponin I < 0.012 (0.000-0.034) ng/mL Serum Total Protein 7.0 (6.3-8.2) g/dL Albumin 4.2 (3.5-5.0) g/dL Amylase 51 (30-110) U/L Lipase 41 (23-300) U/L Urine Color (YELLOW) Urine Appearance (CLEAR) Urine pH (5-6) Ur Specific [place] (1.005-1.025) Urine Protein (Negative) Urine Ketones (NEGATIVE) Urine Blood (0-5) Gaurav/ul Urine Nitrite (NEGATIVE) Urine Bilirubin (NEGATIVE) Urine Urobilinogen (0-1) mg/dL Ur Leukocyte Esterase (NEGATIVE) Urine WBC (Auto) (0-5) /HPF Urine RBC (Auto) (0-2) /HPF U Epithel Cells (Auto) (FEW) /HPF Urine Bacteria (Auto) (NEGATIVE) /HPF Urine Mucus (Auto) (NEGATIVE) /HPF Urine Culture Reflexed (NO) Urine Glucose (NEGATIVE) mg/dL 04/18/20 04/18/20 Range/Units 06:58 06:40 WBC 12.6 H (4.0-10.5) K/mm3 RBC 5.09 (4.1-5.6) M/mm3 Hgb 15.6 (12.5-18.0) gm/dl Hct 47.2 (42-50) % MCV 92.7 (78-100) fl MCH 30.6 (26-32) pg MCHC 33.1 (32-36) g/dl RDW 13.8 (11.5-14.0) % Plt Count 196 (150-450) K/mm3 MPV 10.6 (7.5-11.0) fl Gran % 87.7 H (36.0-66.0) % Eos # (Auto) 0.06 (0-0.5) Absolute Lymphs (auto) 0.98 L (1.0-4.6) Absolute Monos (auto) 0.46 (0.0-1.3) Lymphocytes % 7.8 L (24.0-44.0) % Monocytes % 3.7 (0.0-12.0) % Eosinophils % 0.5 (0.00-5.0) % Basophils % 0.3 (0.0-0.4) % Absolute Granulocytes 11.01 H (1.4-6.9) Basophils # 0.04 (0-0.4) Sodium (137-145) mmol/L Potassium (3.5-5.1) mmol/L Chloride (98-107) mmol/L Carbon Dioxide (22-30) mmol/L Anion Gap (5-15) MEQ/L BUN (9-20) mg/dL Creatinine (0.66-1.25) mg/dL Estimated GFR ML/MIN Glucose (74-106) mg/dL POC Glucometer (74 to 106) mg/dL Lactic Acid 1.8 (0.4-2.0) Calcium (8.4-10.2) mg/dL Total Bilirubin (0.2-1.3) mg/dL AST (17-59) U/L ALT (0-50) U/L Alkaline Phosphatase (38-126) U/L Troponin I (0.000-0.034) ng/mL Serum Total Protein (6.3-8.2) g/dL Albumin (3.5-5.0) g/dL Amylase (30-110) U/L Lipase (23-300) U/L Urine Color (YELLOW) Urine Appearance (CLEAR) Urine pH (5-6) Ur Specific [place] (1.005-1.025) Urine Protein (Negative) Urine Ketones (NEGATIVE) Urine Blood (0-5) Gaurav/ul Urine Nitrite (NEGATIVE) Urine Bilirubin (NEGATIVE) Urine Urobilinogen (0-1) mg/dL Ur Leukocyte Esterase (NEGATIVE) Urine WBC (Auto) (0-5) /HPF Urine RBC (Auto) (0-2) /HPF U Epithel Cells (Auto) (FEW) /HPF Urine Bacteria (Auto) (NEGATIVE) /HPF Urine Mucus (Auto) (NEGATIVE) /HPF Urine Culture Reflexed (NO) Urine Glucose (NEGATIVE) mg/dL - Progress Progress: improved Progress Note: 04/18/20 11:29 74 years old is evaluated for upper abdominal pain with nausea and some episodes of diarrhea. He is given fluid bolus, Zofran along with morphine x2, on reevaluation feeling better. Work-up showed white count of 12, normal liver enzymes. I have obtained CT without contrast which showed some gallbladder sludge/stone. I have obtained ultrasound right upper quadrant with primary luminary report showing gallbladder stones with sludge and CBD 0.6 cm. This could be the reason for his pain. I have discussed with Dr. Iban plasencia, recommended oral antibiotic, pain medication and outpatient follow-up with the clinic early Tuesday morning and may proceed with cholecystectomy same day. Plan discussed with patient who understand and agrees with it. Patient is advised to stop taking aspirin and Plavix per recommendation and n.p.o. after midnight. Discussed signs symptoms of worsening needing return to ER which patient seems understanding. Discussed with Dr.: Other Counseled pt/family regarding: lab results, diagnosis, need for follow-up, rad results - Departure Departure Disposition: Home Clinical Impression: Cholecystitis Condition: Stable Critical Care Time: No Referrals: HOSPITAL,'S [Primary Care Provider] - LAUREL CRAFT [COURTESY STAFF] - (3 days, tuesday at 8;15 am) Instructions: Acute Abdomen (Belly Pain), Gallstones (DC) Additional Instructions: Take pain medications as needed. Stop taking aspirin and Plavix until you see Dr. Moore Tuesday. Do not eat or drink for at least 8 hours before you see Dr. Craft. Return to ER for worsening pain/intractable vomiting/fever chills etc. Continue with antibiotics. Prescriptions: Hydrocodone/APAP 5/325 [[place] 5/325 mg] 1 each PO Q6H PRN PRN 3 Days #10 tablet MDD 4 PRN Reason: Pain Amox Tr/Potass Clav. 875 mg [Augmentin 875-125 Tablet] 875 mg PO BID #14 tablet
--- NOTE | 2020-04-18 08:45 | XRAY ---
Indication: Bilateral abdominal pain, nausea, and vomiting. Multiple contiguous axial images obtained through the abdomen and pelvis without contrast. Comparison: None. Lung bases demonstrates minimal bilateral dependent atelectasis. No infiltrate or effusion. Heart is not enlarged. Noncontrasted stomach and bowel loops remain nonobstructed with. Appendectomy reported. Scattered descending and sigmoid diverticulosis. No free fluid/air. 1 cm left lobe and 7 mm right lobe hepatic cysts versus hemangioma. Hepatic/splenic calcified granulomas. Gallbladder distended with vague intraluminal sludge in the dependent portion. There is a 3.2 cm right mid renal exophytic cyst. Urinary bladder is moderately distended concerning for outlet obstruction versus neurogenic bladder. Enlarged prostate gland impresses on the base of the bladder. Remaining liver, gallbladder, pancreas, spleen, adrenal glands, kidneys, and ureters are unremarkable for noncontrast exam. Mild scattered aortoiliac calcifications without AAA. Osseous structures intact with mild degenerative changes throughout the spine and both hips. Small fatty left inguinal hernia. Impression: 1. Distended gallbladder with sludge. 2. Hepatic cysts versus hemangioma. 3. Distended urinary bladder. Rule out outlet obstruction versus neurogenic bladder. 4. Incidental right renal cyst, enlarged prostate gland, colonic diverticulosis, chronic bony findings, and fatty left inguinal hernia. Comment: Preliminary interpretation was made by [facility]. No critical discrepancy.
[2020-04-18 09:19] LABS: Appearance CLEAR (CLEAR); Bilirubin NEGATIVE (NEGATIVE); Blood NEGATIVE Ery/ul (0-5); Glucose >=500 mg/dL (NEGATIVE); Ketones SMALL (NEGATIVE); Leukocyte Esterase NEGATIVE (NEGATIVE); Mucus SLIGHT /HPF (NEGATIVE); Nitrite NEGATIVE (NEGATIVE); Protein,Urine Dip NEGATIVE (Negative); Specific Gravity 1.024 (1.005-1.025); Urobilinogen NEGATIVE mg/dL (0-1)
[2020-04-18] MEDS ORDERED: Augmentin 875-125 Tablet PO ONE (11:29)
[2020-04-18] MEDS ORDERED: NORCO 5/325 MG PO ONE (11:36)
[2020-04-18] MEDS ORDERED: Augmentin 875-125 Tablet ONE ×2 (11:40→11:42)
[2020-04-18] MEDS ORDERED: NORCO 5/325 MG ONE (11:42)
[2020-04-18] MEDS ORDERED: ZOFRAN ODT 4 MG PO PRN (11:42)
[2020-04-18] MEDS ORDERED: ZOFRAN ODT 4 MG ONE (11:48)
[2020-04-18 12:02] VITALS: BP 113/71; PULSE 81
[2020-04-18 15:46] VITALS: O2SAT 96
--- NOTE | 2020-04-18 18:21 | XRAY ---
Indication: Right upper quadrant pain. Two-dimensional gallbladder sonogram performed. Comparison: None Pancreas not well seen due to overlying bowel gas. Gallbladder normally distended with sludge, small gallstones, and wall thickening up to 3.2 mm. No pericholecystic fluid. Common bile duct measures 5.8 mm. No intrahepatic biliary distention. Visualized portions of the liver homogeneous. Right kidney measures 11.8 x 6.6 x 5.3 cm with 2 cysts, largest 2.7 cm midpole. No suspicious solid renal mass or hydronephrosis. Impression: 1. Abnormal gallbladder with sludge, stones, and wall thickening. Rule out chronic cholecystitis. 2. Nonvisualization pancreas. 3. Incidental right renal cysts. Comment: Preliminary report was given.
[2020-04-18] MEDS ORDERED: Augmentin 875-125 Tablet PO SCH (22:00)
== END 2020-04-18 12:07 | disposition home or self-care (01) ==
LOC: ED 06:18
DX: K81.9 Cholecystitis, unspecified (principal); I10 Essential (primary) hypertension; I25.810 Atherosclerosis of coronary artery bypass graft(s) without angina pectoris; Z79.899 Other long term (current) drug therapy
CPT/HCPCS: 36415; 74176; 76705; 80053; 81001; 82150; 82947; 83605; 83690; 84484; 85025; 93005; 96374; 96375; 96376; 99285; J2270; J2405; Q0162; A9270-GY

== ENCOUNTER 2022-05-22 15:41 | Emergency (ER) | payer MEDICARE ==
[2022-05-22] MEDS ORDERED: Sodium Chloride 0.9% 1000 ML 1,000 ML IV STA (15:58)
[2022-05-22] MEDS ORDERED: Zofran 4 MG/2 ML VIAL IV ONE (15:58)
[2022-05-22] MEDS ORDERED: PROTONIX 40 MG IV IV ONE ×2 (15:58→16:26)
[2022-05-22] MEDS ORDERED: Pepcid 20 MG VIAL IV ONE ×2 (15:58→16:26)
[2022-05-22] MEDS ORDERED: BENADRYL 50 MG/ML IV ONE (16:00)
[2022-05-22] MEDS ORDERED: Hydromorphone 1 mg/ml Injection IV ONE (16:00)
--- NOTE | 2022-05-22 16:06 | ERPHSYRPT ---
- History of Present Illness Time Seen by Provider: 05/22/22 16:01 Historian: patient, family Exam Limitations: no limitations Patient Subjective Stated Complaint: Abdominal pain Triage Nursing Assessment: Patient ambulated back to ED and transferred self to bed. Patient A+O X 3. Patient's skin pink, warm and dry. Patient complains of RUQ and mid abdominal pain that started this am. Patient states he does have a bad gallbladder and ate greasy food and nuts for dinner. Patient states he woke up with RUQ and mid abdominal pain that has gotten worse with N/V. Abdomen soft and round with BS X 4. Physician History: Pt has Hx of known GB dx after w/u before Covid but has been delayed by pandemic to have it removed. Now having acute abd pain today/ spome N no V. No fever. ate fried chicken and onion rings and then began symptoms today. denies CP but the pain is epigastric and to right abd and described like a knot. Hx complicated by CAD SP bypass x 5 and Stent x3. Max disability vet from agent orange as well Hx confirmed by independent source interview with family. Timing/Duration: today Activities at Onset: none Quality: burning, dullness, pressure, tightness Abdominal Pain Onset Location: RUQ, epigastric Pain Radiation: RUQ Severity of Pain-Max: moderate Severity of Pain-Current: moderate Associated Symptoms: nausea Previous symptoms: same symptoms as today Allergies/Adverse Reactions: codeine Allergy (Verified 05/22/22 15:46) Home Medications: Esomeprazole Magnesium [Nexium] 10 mg PO DAILY PRN PRN 02/03/16 [History] Insulin Glargine [Lantus Insulin] 40 unit SQ BID 02/03/16 [History] Irbesartan 150 mg [Avapro 150 MG] 150 mg PO DAILY 02/03/16 [History] Metformin HCl 1000 mg [Glucophage 1000 MG] 1,000 mg PO BID 02/03/16 [History] Aspirin EC 81 mg [Ecotrin 81 mg] 81 mg PO DAILY 03/19/18 [History] Carvedilol [Coreg 6.25 MG] 6.25 mg PO BID 03/19/18 [History] Clopidogrel Bisulfate [PLAVIX 75 MG Tablet] 75 mg PO DAILY 03/19/18 [History] Isosorbide Mononitrate 30 mg [Imdur 30 MG] 30 mg PO DAILY 03/19/18 [History] Metformin HCl [Metformin HCl ER] 1,000 mg PO DAILY 03/19/18 [History] Ranolazine 500 MG [Ranexa 500 MG] 1,000 mg PO BID 03/19/18 [History] Hx Tetanus, Diphtheria Vaccination/Date Given: Yes Hx Influenza Vaccination/Date Given: Yes Hx Pneumococcal Vaccination/Date Given: Yes Immunizations Up to Date: Yes Travel Risk - International Travel Have you traveled outside of the country in past 3 weeks: No - Coronavirus Screening Are you exhibiting any of the following symptoms?: No Close contact with a COVID-19 positive Pt in past 14-21 Days: No - Vaccine Status Have you recieved a Covid-19 vaccination: Yes [employer]: [employer] - Vaccination Dates Date of 2cond Vaccination (if applicable): na - Review of Systems Constitutional: No Fever, No Chills Eyes: No Symptoms Ears, Nose, & Throat: No Symptoms Respiratory: No Cough, No Dyspnea Cardiac: No Chest Pain, No Edema, No Syncope Abdominal/Gastrointestinal: Abdominal Pain, Nausea, No Vomiting, No Diarrhea Genitourinary Symptoms: No Dysuria Musculoskeletal: No Back Pain, No Neck Pain Skin: No Rash Neurological: No Dizziness, No Focal Weakness, No Sensory Changes Psychological: No Symptoms Endocrine: No Symptoms Hematologic/Lymphatic: No Symptoms Immunological/Allergic: No Symptoms All Other Systems: Reviewed and Negative - Past Medical History Pertinent Past Medical History: Yes Neurological History: No Pertinent History ENT History: No Pertinent History Cardiac History: High Cholesterol, Hypertension, Myocardial Infarction ([place]) Respiratory History: No Pertinent History Endocrine Medical History: Diabetes Type II Musculoskeletal History: No Pertinent History GI Medical History: GERD History: No Pertinent History Psycho-Social History: No Pertinent History Male Reproductive Disorders: No Pertinent History Other Medical History: exposed to agent orange - Past Surgical History Past Surgical History: Yes Cardiac: CABG, Cardiac Catheterization, Cardiac Stent Respiratory: No Pertinent History Gastrointestinal: Appendectomy Genitourinary: No Pertinent History Musculoskeletal: No Pertinent History Male Surgical History: No Pertinent History Other Surgical History: 5 vessel bypass, 3 stents - Social History Smoking Status: Never smoker Exposure to second hand smoke: No Alcohol Use: None Drug Use: none Patient Lives Alone: Yes Significant Family History: no pertinent family hx - Nursing Vital Signs Nursing Vital Signs: Initial Vital Signs Temperature 96.2 F 05/22/22 15:47 Pulse Rate 86 05/22/22 15:47 Respiratory Rate 20 05/22/22 15:47 Blood Pressure 145/95 05/22/22 15:47 O2 Sat by Pulse Oximetry 98 05/22/22 15:47 Pain Scale Pain Intensity 0 - Physical Exam General Appearance: mild distress, alert Eye Exam: PERRL/EOMI, eyes nml inspection Ears, Nose, Throat Exam: normal ENT inspection, pharynx normal, moist mucous membranes Neck Exam: normal inspection, non-tender, supple, full range of motion Respiratory Exam: normal breath sounds, lungs clear, No respiratory distress Cardiovascular Exam: regular rate/rhythm, normal heart sounds Gastrointestinal/Abdomen Exam: soft, tenderness (ruq epigastrium), guarding, No mass Rectal Exam: deferred Back Exam: normal inspection, normal range of motion, No CVA tenderness, No vertebral tenderness Extremity Exam: normal inspection, normal range of motion, pelvis stable Neurologic Exam: alert, 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, cooperative, normal mood/affect, nml cerebellar function, sensation nml, No motor deficits Skin Exam: normal color, warm, dry SpO2 Interpretation: normal SpO2: 98 O2 Delivery: Room Air - Course Nursing assessment & vital signs reviewed: Yes EKG Interpreted by Me: Sinus Rhythm, Left Bundle Branch Block, Non-specific ST Changes - CT Exams Abdomen/Pelvis CT Interpretation: Tele-radiologist Report, No appendicitis, Other (GB Dx but not cholecystitis at this time. ) Ordered Tests: Active Orders 24 hr Category Date Time Status EKG-ER Only STAT Care 05/22/22 15:58 Active IV Insertion STAT Care 05/22/22 15:58 Active ABDOMEN AND PELVIS W/0 CONTRAS [CT] Stat Exams 05/22/22 15:58 Completed AMYLASE Stat Lab 05/22/22 16:17 Completed CBC W DIFF Stat Lab 05/22/22 16:17 Completed CMP Stat Lab 05/22/22 16:17 Completed LIPASE Stat Lab 05/22/22 16:17 Completed Lactic Acid Stat Lab 05/22/22 16:12 Completed TROPONIN Q4H Lab 05/22/22 16:17 Completed TROPONIN Q4H Lab 05/22/22 19:51 Completed TROPONIN Q4H Lab 05/23/22 00:00 Ordered UA W/RFX UR CULTURE Stat Lab 05/22/22 19:17 Completed Medication Summary Discontinued Medications Generic Name Dose Route Start Last Admin Trade Name Richi PRN Reason Stop Dose Admin Diphenhydramine HCl 25 mg 05/22/22 16:00 05/22/22 16:30 Diphenhydramine Hcl 50 Mg/Ml Vial IV 05/22/22 16:01 25 mg STAT ONE Administration Diphenhydramine HCl Confirm 05/22/22 16:26 Diphenhydramine Hcl 50 Mg/Ml Vial Administered 05/22/22 16:27 Dose 50 mg .ROUTE .STK-MED ONE Famotidine 20 mg 05/22/22 15:58 05/22/22 16:29 Famotidine 20 Mg/1 Vial IV 05/22/22 15:59 20 mg STAT ONE Administration Famotidine Confirm 05/22/22 16:26 Famotidine 20 Mg/1 Vial Administered 05/22/22 16:27 Dose 20 mg IV .STK-MED ONE Hydromorphone HCl 1 mg 05/22/22 16:00 05/22/22 16:30 Hydromorphone 1 Mg/1ml Inj 1 Mg/Ml Syringe IV 05/22/22 16:01 1 mg STAT ONE Administration Hydromorphone HCl Confirm 05/22/22 16:27 Hydromorphone 1 Mg/1ml Inj 1 Mg/Ml Syringe Administered 05/22/22 16:28 Dose 1 mg .ROUTE .STK-MED ONE Sodium Chloride 1,000 mls @ 999 mls/hr 05/22/22 15:58 05/22/22 17:32 Sodium Chloride 0.9% 1000 Ml IV 05/22/22 16:58 Infused .Q1H1M STA Infusion Meropenem 1 gm/ Sodium 100 mls @ 200 mls/hr 05/22/22 16:08 05/22/22 17:42 Chloride IV 05/22/22 16:37 200 mls/hr STAT ONE Administration Metronidazole 500 mg in 100 mls @ 200 mls/hr 05/22/22 16:08 05/22/22 18:03 Flagyl 500 Mg Ivpb IV 05/22/22 16:37 Infused STAT STA Infusion Sodium Chloride Confirm 05/22/22 16:27 Sodium Chloride 0.9% 1000 Ml Administered 05/22/22 16:28 Dose 1,000 mls @ ud .ROUTE .STK-MED ONE Metronidazole Confirm 05/22/22 17:05 Flagyl 500 Mg Ivpb Administered 05/22/22 17:06 Dose 500 mg in 100 mls @ ud IV .STK-MED ONE Sodium Chloride Confirm 05/22/22 17:42 Sodium Chloride 100ml Mini-Bag Plus Administered 05/22/22 17:43 Dose 100 mls @ ud IV .STK-MED ONE Meropenem Confirm 05/22/22 17:42 Meropenem 1 Gm Vial Administered 05/22/22 17:43 Dose 1 gm IV .STK-MED ONE Ondansetron HCl 4 mg 05/22/22 15:58 05/22/22 16:29 Ondansetron Hcl 4 Mg/2 Ml Vial IV 05/22/22 15:59 4 mg STAT ONE Administration Ondansetron HCl Confirm 05/22/22 16:26 Ondansetron Hcl 4 Mg/2 Ml Vial Administered 05/22/22 16:27 Dose 4 mg .ROUTE .STK-MED ONE Pantoprazole Sodium 40 mg 05/22/22 15:58 05/22/22 16:30 Pantoprazole 40 Mg Vial IV 05/22/22 15:59 40 mg STAT ONE Administration Pantoprazole Sodium Confirm 05/22/22 16:26 Pantoprazole 40 Mg Vial Administered 05/22/22 16:27 Dose 40 mg IV .STK-MED ONE Lab/Rad Data: Laboratory Result Diagrams 05/22/22 16:17 05/22/22 16:17 Laboratory Results 05/22/22 05/22/22 05/22/22 Range/Units 19:51 19:17 16:17 WBC (4.0-10.5) x10^3/uL RBC (4.1-5.6) x10^6/uL Hgb (12.5-18.0) g/dL Hct (42-50) % MCV (78-100) fL MCH (26-32) pg MCHC (32-36) g/dL RDW (11.5-14.0) % Plt Count (150-450) x10^3/uL MPV (7.5-11.0) fL Gran % (36.0-66.0) % Immature Gran % (Auto) (0.00-0.4) % Nucleat RBC Rel Count (0.00-0.1) % Eos # (Auto) (0-0.5) x10^3/uL Immature Gran # (Auto) (0.00-0.03) x10^3u/L Absolute Lymphs (auto) (1.0-4.6) x10^3/uL Absolute Monos (auto) (0.0-1.3) x10^3/uL Absolute Nucleated RBC (0.00-0.01) x10^3u/L Lymphocytes % (24.0-44.0) % Monocytes % (0.0-12.0) % Eosinophils % (0.00-5.0) % Basophils % (0.0-0.4) % Absolute Granulocytes (1.4-6.9) x10^3/uL Basophils # (0-0.4) x10^3/uL Sodium (137-145) mmol/L Potassium (3.5-5.1) mmol/L Chloride (98-107) mmol/L Carbon Dioxide (22-30) mmol/L Anion Gap (5-15) MEQ/L BUN (9-20) mg/dL Creatinine (0.66-1.25) mg/dL Estimated GFR ML/MIN Glucose (74-106) mg/dL Lactic Acid (0.4-2.0) Calcium (8.4-10.2) mg/dL Total Bilirubin (0.2-1.3) mg/dL AST (17-59) U/L ALT (0-50) U/L Alkaline Phosphatase (38-126) U/L Troponin I < 0.012 < 0.012 (0.000-0.034) ng/mL Serum Total Protein (6.3-8.2) g/dL Albumin (3.5-5.0) g/dL Amylase (30-110) U/L Lipase (23-300) U/L Urine Color Yellow (Yellow) Urine Appearance Clear (Clear) Urine pH 5.0 (4.6-8.0) Ur Specific [place] >=1.030 A (1.005-1.030) Urine Protein Negative (Negative) Urine Glucose (UA) >=1000 A (Negative) mg/dL Urine Ketones Trace A (Negative) Urine Blood Negative (Negative) Urine Nitrite Negative (Negative) Urine Bilirubin Negative (Negative) Urine Urobilinogen 0.2 (0.2) mg/dL Ur Leukocyte Esterase Negative (Negative) U Hyaline Cast (Auto) NONE SEEN (0-2) /LPF Urine Microscopic RBC 0-2 (0-5) /HPF Urine Microscopic WBC 0-2 (0-5) /HPF Ur Epithelial Cells None Seen (None Seen) /HPF Urine Bacteria None Seen (None Seen) /HPF Urine Culture Reflexed NO (NO) 05/22/22 05/22/22 05/22/22 Range/Units 16:17 16:17 16:12 WBC 13.8 H (4.0-10.5) x10^3/uL RBC 5.08 (4.1-5.6) x10^6/uL Hgb 15.5 (12.5-18.0) g/dL Hct 47.4 (42-50) % MCV 93.3 (78-100) fL MCH 30.5 (26-32) pg MCHC 32.7 (32-36) g/dL RDW 12.9 (11.5-14.0) % Plt Count 241 (150-450) x10^3/uL MPV 10.4 (7.5-11.0) fL Gran % 87.1 H (36.0-66.0) % Immature Gran % (Auto) 0.4 (0.00-0.4) % Nucleat RBC Rel Count 0.0 (0.00-0.1) % Eos # (Auto) 0.04 (0-0.5) x10^3/uL Immature Gran # (Auto) 0.05 H (0.00-0.03) x10^3u/L Absolute Lymphs (auto) 1.14 (1.0-4.6) x10^3/uL Absolute Monos (auto) 0.50 (0.0-1.3) x10^3/uL Absolute Nucleated RBC 0.00 (0.00-0.01) x10^3u/L Lymphocytes % 8.2 L (24.0-44.0) % Monocytes % 3.6 (0.0-12.0) % Eosinophils % 0.3 (0.00-5.0) % Basophils % 0.4 (0.0-0.4) % Absolute Granulocytes 12.04 H (1.4-6.9) x10^3/uL Basophils # 0.05 (0-0.4) x10^3/uL Sodium 136 L (137-145) mmol/L Potassium 4.9 (3.5-5.1) mmol/L Chloride 104 (98-107) mmol/L Carbon Dioxide 25 (22-30) mmol/L Anion Gap 11.9 (5-15) MEQ/L BUN 15 (9-20) mg/dL Creatinine 0.93 (0.66-1.25) mg/dL Estimated GFR > 60.0 ML/MIN Glucose 141 H (74-106) mg/dL Lactic Acid 1.8 (0.4-2.0) Calcium 9.6 (8.4-10.2) mg/dL Total Bilirubin 1.10 (0.2-1.3) mg/dL AST 35 (17-59) U/L ALT 32 (0-50) U/L Alkaline Phosphatase 85 (38-126) U/L Troponin I (0.000-0.034) ng/mL Serum Total Protein 7.1 (6.3-8.2) g/dL Albumin 4.4 (3.5-5.0) g/dL Amylase 66 (30-110) U/L Lipase 115 (23-300) U/L Urine Color (Yellow) Urine Appearance (Clear) Urine pH (4.6-8.0) Ur Specific [place] (1.005-1.030) Urine Protein (Negative) Urine Glucose (UA) (Negative) mg/dL Urine Ketones (Negative) Urine Blood (Negative) Urine Nitrite (Negative) Urine Bilirubin (Negative) Urine Urobilinogen (0.2) mg/dL Ur Leukocyte Esterase (Negative) U Hyaline Cast (Auto) (0-2) /LPF Urine Microscopic RBC (0-5) /HPF Urine Microscopic WBC (0-5) /HPF Ur Epithelial Cells (None Seen) /HPF Urine Bacteria (None Seen) /HPF Urine Culture Reflexed (NO) - Progress Progress: improved, re-examined Progress Note: 05/22/22 21:39 discussed results with pt and family and that he still could have cardiac event and that he could have early cholecystitis not yet seen on CT even though nega tive at this time - they wish to choose DC with out pt f/u for GB and any futher prieto. rather than further w/u in ER at this time or hospitalization and have the capacity to make this choice. the symptoms have all resolved and they wish DC at this time. 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 05/22/22 21:42 Counseled pt/family regarding: lab results, diagnosis, need for follow-up, rad results - Departure Departure Disposition: Home Clinical Impression: Biliary colic, abdominal pain Condition: Good Critical Care Time: No Referrals: HOSPITAL,'S [Primary Care Provider] - Follow up/PCP as directed Instructions: Gallstones (DC), Severe Abdominal Pain, Adult (DC) Additional Instructions: although you have gall bladder disease and the symptoms are consistent with this especially given the precipitating diet tonight, there still could be other things inclluding cardiac evolving, so if symptoms recur return or have it checked immediately ; and see your surgeon this week to arrange your GB treat ment. also followup your blood pressure and diabetes with your
[2022-05-22] MEDS ORDERED: FLAGYL 500 MG IVPB 500 MG/100 ML BAG IV STA (16:08)
[2022-05-22] MEDS ORDERED: Merrem 1 GM in Sodium Chloride 100ML MINI-BAG PLUS 100 ML IV ONE (16:08)
[2022-05-22 16:18] LABS: Absolute Neutrophil Ct (ANC) 12.04 x10^3/uL (1.4-6.9); BASOPHIL % 0.4 % (0.0-0.4); Basophil (Absolute #) 0.05 x10^3/uL (0-0.4); Eosinophil % 0.3 % (0.00-5.0); Eosinophil (Absolute #) 0.04 x10^3/uL (0-0.5); Hematocrit 47.4 % (42-50); Hemoglobin 15.5 g/dL (12.5-18.0); IMMATURE GRAN # 0.05 x10^3u/L (0.00-0.03); IMMATURE GRAN % 0.4 % (0.00-0.4); Lymphocyte (Absolute #) 1.14 x10^3/uL (1.0-4.6); Lymphocytes % 8.2 % (24.0-44.0); Mean Cell Volume 93.3 fL (78-100); Mean Corpuscular Hemoglobin 30.5 pg (26-32); Mean Corpuscular Hgb Concent. 32.7 g/dL (32-36); Mean Platelet Volume 10.4 fL (7.5-11.0); Monocytes % 3.6 % (0.0-12.0); Neutrophil % 87.1 % (36.0-66.0); Platelet Count 241 x10^3/uL (150-450); Red Blood Count 5.08 x10^6/uL (4.1-5.6); Red Cell Distribution Width 12.9 % (11.5-14.0); White Blood Count 13.8 x10^3/uL (4.0-10.5)
[2022-05-22] MEDS ORDERED: Zofran 4 MG/2 ML VIAL ONE (16:26)
[2022-05-22] MEDS ORDERED: BENADRYL 50 MG/ML ONE (16:26)
[2022-05-22] MEDS ORDERED: Hydromorphone 1 mg/ml Injection ONE (16:27)
[2022-05-22] MEDS ORDERED: Sodium Chloride 0.9% 1000 ML 1,000 ML ONE (16:27)
[2022-05-22 16:41] LABS: ALBUMIN 4.4 g/dL (3.5-5.0); ALKALINE PHOSPHATASE 85 U/L (38-126); AMYLASE 66 U/L (30-110); ANION GAP 11.9 MEQ/L (5-15); BLOOD UREA NITROGEN 15 mg/dL (9-20); CHLORIDE 104 mmol/L (98-107); Calcium 9.6 mg/dL (8.4-10.2); Carbon Dioxide 25 mmol/L (22-30); Creatinine 1 0.93 mg/dL (0.66-1.25); EST GLOMERULAR FILTRATION RATE > 60.0 ML/MIN; Glucose 141 mg/dL (74-106); LIPASE 115 U/L (23-300); Potassium 4.9 mmol/L (3.5-5.1); SGOT/AST 35 U/L (17-59); SGPT/ALT 32 U/L (0-50); SODIUM 136 mmol/L (137-145); Total Protein 7.1 g/dL (6.3-8.2)
[2022-05-22] MEDS ORDERED: FLAGYL 500 MG IVPB 500 MG/100 ML BAG IV ONE (17:05)
[2022-05-22] MEDS ORDERED: Merrem IV ONE (17:42)
[2022-05-22] MEDS ORDERED: Sodium Chloride 100ML MINI-BAG PLUS 100 ML IV ONE (17:42)
[2022-05-22 19:27] LABS: Appearance Clear (Clear); Bacteria None Seen /HPF (None Seen); Bilirubin Negative (Negative); Blood Negative (Negative); Epithelial Cells None Seen /HPF (None Seen); Glucose, Urine >=1000 mg/dL (Negative); Hyaline Casts NONE SEEN /LPF (0-2); Ketones Trace (Negative); Leukocyte Esterase Negative (Negative); Nitrite Negative (Negative); Protein,Urine Dip Negative (Negative); RBC 0-2 /HPF (0-5); Specific Gravity >=1.030 (1.005-1.030); Urobilinogen 0.2 mg/dL (0.2); WBC 0-2 /HPF (0-5)
[2022-05-22 19:28] LABS: ADD URINE CULTURE? NO (NO)
--- NOTE | 2022-05-22 20:12 | XRAY ---
Indication: Epigastric pain. Multiple contiguous axial images obtained through the abdomen and pelvis without contrast. Comparison: April 18, 2020 Lung bases demonstrates minimal dependent atelectasis. Heart not enlarged again with scattered coronary calcifications. Noncontrasted stomach and bowel loops appear nonobstructed. Previous appendectomy. Again scattered descending and sigmoid diverticulosis without diverticulitis. Stable possible gallbladder sludge, 1 cm left lobe hepatic cyst versus hemangioma, small right renal cysts, enlarged prostate gland, and tiny hepatic/splenic calcified granulomas. No free fluid/air. Remaining liver, gallbladder, pancreas, spleen, adrenal glands, kidneys, ureters, and bladder are unremarkable for noncontrast exam. Again mild scattered aortoiliac calcifications without AAA. Osseous structures intact again with osteopenia and mild degenerative changes throughout the spine and both hips. Stable small fatty left inguinal hernia. Impression: 1. Again possible gallbladder sludge, hepatic cyst versus hemangioma, right renal cysts, enlarged prostate gland, colonic diverticulosis, arteriosclerotic disease, chronic bony findings, fatty left inguinal hernia, and old granulomatous disease. 2. No new or acute intra-abdominal/pelvic abnormalities on this noncontrast exam. Comment: Preliminary interpretation made by [facility]. No critical discrepancy.
[2022-05-22 21:39] VITALS: O2SAT 98
[2022-05-22 21:52] VITALS: BP 136/86; PULSE 84
== END 2022-05-22 22:01 | disposition home or self-care (01) ==
LOC: ED 15:41
DX: K80.50 Calculus of bile duct without cholangitis or cholecystitis without obstruction (principal); R10.13 Epigastric pain; R10.11 Right upper quadrant pain; R11.0 Nausea; E78.5 Hyperlipidemia, unspecified; I10 Essential (primary) hypertension; E11.9 Type 2 diabetes mellitus without complications; Z79.02 Long term (current) use of antithrombotics/antiplatelets; Z79.4 Long term (current) use of insulin; Z79.84 Long term (current) use of oral hypoglycemic drugs; Z79.899 Other long term (current) drug therapy
CPT/HCPCS: 36000; 36415; 74176; 80053; 81001; 82150; 83605; 83690; 84484; 85025; 93005; 96360; 96365; 96367; 96374; 96375; 99285; J1170; J1200; J2405

== ENCOUNTER 2022-09-02 13:41 | Emergency (ER) | payer MEDICARE, OTHER ==
[2022-09-02] MEDS ORDERED: MORPHINE SULFATE 4 MG INJ IV ONE ×2 (14:16→16:19)
[2022-09-02] MEDS ORDERED: PROTONIX 40 MG IV IV ONE ×2 (14:16→14:27)
[2022-09-02] MEDS ORDERED: Zofran 4 MG/2 ML VIAL IV ONE (14:16)
[2022-09-02] MEDS ORDERED: Zofran 4 MG/2 ML VIAL ONE (14:27)
[2022-09-02] MEDS ORDERED: MORPHINE SULFATE 4 MG INJ ONE ×2 (14:27→16:28)
[2022-09-02 14:28] LABS: Absolute Neutrophil Ct (ANC) 11.52 x10^3/uL (1.4-6.9); BASOPHIL % 0.4 % (0.0-0.4); Basophil (Absolute #) 0.05 x10^3/uL (0-0.4); Eosinophil % 0.6 % (0.00-5.0); Eosinophil (Absolute #) 0.08 x10^3/uL (0-0.5); Hematocrit 47.1 % (42-50); Hemoglobin 15.2 g/dL (12.5-18.0); IMMATURE GRAN # 0.05 x10^3u/L (0.00-0.03); IMMATURE GRAN % 0.4 % (0.00-0.4); Lymphocyte (Absolute #) 1.12 x10^3/uL (1.0-4.6); Lymphocytes % 8.4 % (24.0-44.0); Mean Cell Volume 93.1 fL (78-100); Mean Corpuscular Hgb Concent. 32.3 g/dL (32-36); Mean Platelet Volume 10.5 fL (7.5-11.0); Monocyte (Absolute #) 0.59 x10^3/uL (0.0-1.3); Monocytes % 4.4 % (0.0-12.0); Neutrophil % 85.8 % (36.0-66.0); Platelet Count 202 x10^3/uL (150-450); Red Blood Count 5.06 x10^6/uL (4.1-5.6); Red Cell Distribution Width 13.6 % (11.5-14.0); White Blood Count 13.4 x10^3/uL (4.0-10.5)
[2022-09-02 14:39] LABS: ALBUMIN 4.3 g/dL (3.5-5.0); ALKALINE PHOSPHATASE 66 U/L (38-126); ANION GAP 13.8 MEQ/L (5-15); BLOOD UREA NITROGEN 18 mg/dL (9-20); CHLORIDE 102 mmol/L (98-107); Calcium 8.9 mg/dL (8.4-10.2); Carbon Dioxide 27 mmol/L (22-30); Creatinine 1 0.99 mg/dL (0.66-1.25); EST GLOMERULAR FILTRATION RATE > 60.0 ML/MIN; Glucose 142 mg/dL (74-106); LIPASE 67 U/L (23-300); Potassium 4.9 mmol/L (3.5-5.1); SGOT/AST 46 U/L (17-59); SGPT/ALT 26 U/L (0-50); SODIUM 137 mmol/L (137-145); Total Protein 7.3 g/dL (6.3-8.2)
--- NOTE | 2022-09-02 15:12 | XRAY ---
Indication: Pain and nausea. Multiple contiguous axial images obtained through the abdomen and pelvis without contrast. Comparison: May 14, 2022 Lung bases again demonstrates mild bilateral dependent atelectasis and medial left lower lobe calcified granuloma. New tiny bilateral pleural effusions. Heart borderline enlarged again with coronary calcifications. Noncontrasted stomach and bowel loops nonobstructed again with appendectomy. Again mild scattered colonic diverticulosis, minimal gallbladder sludge, left lobe hepatic cyst/hemangioma, small right renal cysts, enlarged prostate gland, and tiny hepatic/splenic calcified granulomas. No free fluid/air. Remaining liver, gallbladder, pancreas, spleen, adrenal glands, kidneys, ureters, and bladder are unremarkable for noncontrast exam. Again mild aortoiliac calcifications without AAA. Osseous structures intact again with osteopenia and mild degenerative changes throughout spine and both hips. Stable small fatty left inguinal hernia. Impression: 1. New tiny bibasilar effusions without cardiomegaly. 2. Again chronic findings including gallbladder sludge, hepatic cyst/hemangioma, right renal cysts, enlarged prostate gland, colonic diverticulosis, arteriosclerotic disease, chronic bony findings, fatty left inguinal hernia, and old granulomatous disease.
[2022-09-02 16:11] VITALS: O2SAT 92
[2022-09-02 16:27] LABS: Appearance Clear (Clear); Bacteria None Seen /HPF (None Seen); Bilirubin Negative (Negative); Blood Negative (Negative); Epithelial Cells None Seen /HPF (None Seen); Glucose, Urine >=1000 mg/dL (Negative); Hyaline Casts NONE SEEN /LPF (0-2); Ketones 15 (Negative); Leukocyte Esterase Negative (Negative); Nitrite Negative (Negative); Protein,Urine Dip Negative (Negative); RBC 0-2 /HPF (0-5); Specific Gravity >=1.030 (1.005-1.030); WBC 0-2 /HPF (0-5)
[2022-09-02 16:28] LABS: ADD URINE CULTURE? NO (NO)
[2022-09-02 17:05] VITALS: PULSE 82
--- NOTE | 2022-09-02 17:30 | ERPHSYRPT ---
- History of Present Illness Time Seen by Provider: 09/02/22 13:45 Historian: patient Exam Limitations: no limitations Patient Subjective Stated Complaint: Pt states "It is my gall bladder I know it is. I am supposed to get it out but I have to have a heart surgery first. I ate some baeslers chicken and I have been hurting all morning." Triage Nursing Assessment: PT presented alert and oriented X 3, skin pwd.Pt ambualtes with an upright steady gait, able to speak in clear full sentences pt guarding his abdomen. Physician History: 76 years old male with history of coronary artery disease status post CABG/stenting, hypertension, hyperlipidemia, biliary colic needing cholecystectomy but cannot be done secondary to poor cardiac functions, recently had cardiac cath done and needs more stenting done soon before he can be medically clear presented in the ER with chief complaint of upper abdominal pain/nausea and vomiting after he had fried chicken last night. Patient denies any chest pain palpitations or shortness of breath. Patient described this similar to last time when he was diagnosed with cholecystitis. Timing/Duration: yesterday, gradual onset, worse Activities at Onset: other (After eating) Quality: sharpness Abdominal Pain Onset Location: RUQ, epigastric Severity of Pain-Max: severe Severity of Pain-Current: severe Associated Symptoms: nausea Previous symptoms: same symptoms as today Allergies/Adverse Reactions: codeine Allergy (Verified 06/16/22 07:45) Home Medications: Esomeprazole Magnesium [Nexium] 10 mg PO DAILY PRN PRN 02/03/16 [History] Irbesartan 150 mg [Avapro 150 MG] 150 mg PO DAILY 02/03/16 [History] Aspirin EC 81 mg [Ecotrin 81 mg] 81 mg PO DAILY 03/19/18 [History] Clopidogrel Bisulfate [PLAVIX 75 MG Tablet] 75 mg PO DAILY 03/19/18 [History] Isosorbide Mononitrate 30 mg [Imdur 30 MG] 30 mg PO DAILY 03/19/18 [History] Calcium Carbonate/Vitamin D3 [Calcium 600 mg-D3 10 Mcg Sfgl] 1 each PO DAILY 06/16/22 [History] Dulaglutide [Trulicity] 1.5 mg SQ UD 06/16/22 [History] Famotidine [Pepcid] 40 mg PO DAILY 06/16/22 [History] Nitroglycerin 0.4 mg SL Q5MIN PRN MR X 3 PRN 06/16/22 [History] Omeg3/Dha/Epa/Fish Oil/L.casei [Restora Capsule] 1 each PO DAILY 06/16/22 [History] Risedronate Sodium 35 mg PO DAILY 06/16/22 [History] Silodosin [Rapaflo] 8 mg PO DAILY 06/16/22 [History] Metoprolol Succinate 25 mg Xl* [Toprol-Xl 25MG Tablets] 25 mg PO DAILY 09/02/22 [History] Hx Tetanus, Diphtheria Vaccination/Date Given: Yes Hx Influenza Vaccination/Date Given: Yes Hx Pneumococcal Vaccination/Date Given: Yes Travel Risk - International Travel Have you traveled outside of the country in past 3 weeks: No - Coronavirus Screening Are you exhibiting any of the following symptoms?: No Close contact with a COVID-19 positive Pt in past 14-21 Days: No - Vaccine Status Have you recieved a Covid-19 vaccination: 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[facility] - Vaccination Dates Date of 2cond Vaccination (if applicable): na - Review of Systems Constitutional: No Symptoms Eyes: No Symptoms Ears, Nose, & Throat: No Symptoms Respiratory: No Symptoms Cardiac: No Symptoms Abdominal/Gastrointestinal: Abdominal Pain, Nausea, Vomiting Genitourinary Symptoms: No Symptoms Musculoskeletal: No Symptoms Neurological: No Symptoms Psychological: No Symptoms Endocrine: No Symptoms Hematologic/Lymphatic: No Symptoms Immunological/Allergic: No Symptoms - Past Medical History Pertinent Past Medical History: Yes Neurological History: No Pertinent History ENT History: No Pertinent History Cardiac History: High Cholesterol, Hypertension, Myocardial Infarction ([place]) Respiratory History: No Pertinent History Endocrine Medical History: Diabetes Type II Musculoskeletal History: No Pertinent History GI Medical History: GERD History: No Pertinent History Psycho-Social History: No Pertinent History Male Reproductive Disorders: No Pertinent History Other Medical History: exposed to agent orange - Past Surgical History Past Surgical History: Yes Cardiac: CABG, Cardiac Catheterization, Cardiac Stent Respiratory: No Pertinent History Gastrointestinal: Appendectomy Genitourinary: No Pertinent History Musculoskeletal: No Pertinent History Male Surgical History: No Pertinent History Other Surgical History: 5 vessel bypass, 3 stents. heart cath. - Social History Smoking Status: Never smoker Exposure to second hand smoke: No Alcohol Use: None Drug Use: none Patient Lives Alone: Yes Significant Family History: no pertinent family hx - Nursing Vital Signs Nursing Vital Signs: Initial Vital Signs Temperature 97.8 F 09/02/22 13:47 Pulse Rate 71 09/02/22 13:47 Respiratory Rate 20 09/02/22 13:47 Blood Pressure 144/94 09/02/22 13:47 O2 Sat by Pulse Oximetry 98 09/02/22 13:47 Pain Scale Pain Intensity 0 - Physical Exam General Appearance: no apparent distress, alert Eye Exam: PERRL/EOMI Ears, Nose, Throat Exam: normal ENT inspection Neck Exam: normal inspection, non-tender, supple, full range of motion Respiratory Exam: normal breath sounds, lungs clear Cardiovascular Exam: regular rate/rhythm, normal heart sounds Gastrointestinal/Abdomen Exam: soft, normal bowel sounds, tenderness (B gastrin with minimal tenderness in his right upper quadrant, negative Hernandez sign.) Back Exam: normal inspection, normal range of motion Extremity Exam: normal inspection, normal range of motion Neurologic Exam: alert, 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, cooperative Skin Exam: normal color, warm SpO2 Interpretation: normal SpO2: 92 O2 Delivery: Room Air - Course EKG Interpreted by Me: RATE (78), Sinus Rhythm, Left Mcdonald Deviation, Left Bundle Branch Block, Non-specific ST Changes Ordered Tests: Medication Summary Discontinued Medications Generic Name Dose Route Start Last Admin Trade Name Richi PRN Reason Stop Dose Admin Morphine Sulfate 4 mg 09/02/22 14:16 09/02/22 14:34 Morphine Sulfate 4 Mg/Ml Injection IV 09/02/22 14:17 4 mg STAT ONE Administration Morphine Sulfate Confirm 09/02/22 14:27 Morphine Sulfate 4 Mg/Ml Injection Administered 09/02/22 14:28 Dose 4 mg .ROUTE .STK-MED ONE Morphine Sulfate 4 mg 09/02/22 16:19 09/02/22 16:30 Morphine Sulfate 4 Mg/Ml Injection IV 09/02/22 16:20 4 mg STAT ONE Administration Morphine Sulfate Confirm 09/02/22 16:28 Morphine Sulfate 4 Mg/Ml Injection Administered 09/02/22 16:29 Dose 4 mg .ROUTE .STK-MED ONE Ondansetron HCl 4 mg 09/02/22 14:16 09/02/22 14:29 Ondansetron Hcl 4 Mg/2 Ml Vial IV 09/02/22 14:17 4 mg STAT ONE Administration Ondansetron HCl Confirm 09/02/22 14:27 Ondansetron Hcl 4 Mg/2 Ml Vial Administered 09/02/22 14:28 Dose 4 mg .ROUTE .STK-MED ONE Pantoprazole Sodium 40 mg 09/02/22 14:16 09/02/22 14:31 Pantoprazole 40 Mg Vial IV 09/02/22 14:17 40 mg STAT ONE Administration Pantoprazole Sodium Confirm 09/02/22 14:27 Pantoprazole 40 Mg Vial Administered 09/02/22 14:28 Dose 40 mg IV .STK-MED ONE Lab/Rad Data: Laboratory Result Diagrams 09/02/22 14:27 09/02/22 14:27 Laboratory Results 09/02/22 09/02/22 09/02/22 Range/Units 16:21 16:11 14:27 WBC (4.0-10.5) x10^3/uL RBC (4.1-5.6) x10^6/uL Hgb (12.5-18.0) g/dL Hct (42-50) % MCV (78-100) fL MCH (26-32) pg MCHC (32-36) g/dL RDW (11.5-14.0) % Plt Count (150-450) x10^3/uL MPV (7.5-11.0) fL Gran % (36.0-66.0) % Immature Gran % (Auto) (0.00-0.4) % Nucleat RBC Rel Count (0.00-0.1) % Eos # (Auto) (0-0.5) x10^3/uL Immature Gran # (Auto) (0.00-0.03) x10^3u/L Absolute Lymphs (auto) (1.0-4.6) x10^3/uL Absolute Monos (auto) (0.0-1.3) x10^3/uL Absolute Nucleated RBC (0.00-0.01) x10^3u/L Lymphocytes % (24.0-44.0) % Monocytes % (0.0-12.0) % Eosinophils % (0.00-5.0) % Basophils % (0.0-0.4) % Absolute Granulocytes (1.4-6.9) x10^3/uL Basophils # (0-0.4) x10^3/uL Sodium (137-145) mmol/L Potassium (3.5-5.1) mmol/L Chloride (98-107) mmol/L Carbon Dioxide (22-30) mmol/L Anion Gap (5-15) MEQ/L BUN (9-20) mg/dL Creatinine (0.66-1.25) mg/dL Estimated GFR ML/MIN Glucose (74-106) mg/dL POC Glucometer 146 H (74 to 106) mg/dL Calcium (8.4-10.2) mg/dL Total Bilirubin (0.2-1.3) mg/dL AST (17-59) U/L ALT (0-50) U/L Alkaline Phosphatase (38-126) U/L Troponin I < 0.012 (0.000-0.034) ng/mL Serum Total Protein (6.3-8.2) g/dL Albumin (3.5-5.0) g/dL Lipase (23-300) U/L Urine Color Yellow (Yellow) Urine Appearance Clear (Clear) Urine pH 6.0 (4.6-8.0) Ur Specific [place] >=1.030 A (1.005-1.030) Urine Protein Negative (Negative) Urine Glucose (UA) >=1000 A (Negative) mg/dL Urine Ketones 15 A (Negative) Urine Blood Negative (Negative) Urine Nitrite Negative (Negative) Urine Bilirubin Negative (Negative) Urine Urobilinogen 1.0 A (0.2) mg/dL Ur Leukocyte Esterase Negative (Negative) U Hyaline Cast (Auto) NONE SEEN (0-2) /LPF Urine Microscopic RBC 0-2 (0-5) /HPF Urine Microscopic WBC 0-2 (0-5) /HPF Ur Epithelial Cells None Seen (None Seen) /HPF Urine Bacteria None Seen (None Seen) /HPF Urine Culture Reflexed NO (NO) 09/02/22 09/02/22 Range/Units 14:27 14:27 WBC 13.4 H (4.0-10.5) x10^3/uL RBC 5.06 (4.1-5.6) x10^6/uL Hgb 15.2 (12.5-18.0) g/dL Hct 47.1 (42-50) % MCV 93.1 (78-100) fL MCH 30.0 (26-32) pg MCHC 32.3 (32-36) g/dL RDW 13.6 (11.5-14.0) % Plt Count 202 (150-450) x10^3/uL MPV 10.5 (7.5-11.0) fL Gran % 85.8 H (36.0-66.0) % Immature Gran % (Auto) 0.4 (0.00-0.4) % Nucleat RBC Rel Count 0.0 (0.00-0.1) % Eos # (Auto) 0.08 (0-0.5) x10^3/uL Immature Gran # (Auto) 0.05 H (0.00-0.03) x10^3u/L Absolute Lymphs (auto) 1.12 (1.0-4.6) x10^3/uL Absolute Monos (auto) 0.59 (0.0-1.3) x10^3/uL Absolute Nucleated RBC 0.00 (0.00-0.01) x10^3u/L Lymphocytes % 8.4 L (24.0-44.0) % Monocytes % 4.4 (0.0-12.0) % Eosinophils % 0.6 (0.00-5.0) % Basophils % 0.4 (0.0-0.4) % Absolute Granulocytes 11.52 H (1.4-6.9) x10^3/uL Basophils # 0.05 (0-0.4) x10^3/uL Sodium 137 (137-145) mmol/L Potassium 4.9 (3.5-5.1) mmol/L Chloride 102 (98-107) mmol/L Carbon Dioxide 27 (22-30) mmol/L Anion Gap 13.8 (5-15) MEQ/L BUN 18 (9-20) mg/dL Creatinine 0.99 (0.66-1.25) mg/dL Estimated GFR > 60.0 ML/MIN Glucose 142 H (74-106) mg/dL POC Glucometer (74 to 106) mg/dL Calcium 8.9 (8.4-10.2) mg/dL Total Bilirubin 1.40 H (0.2-1.3) mg/dL AST 46 (17-59) U/L ALT 26 (0-50) U/L Alkaline Phosphatase 66 (38-126) U/L Troponin I (0.000-0.034) ng/mL Serum Total Protein 7.3 (6.3-8.2) g/dL Albumin 4.3 (3.5-5.0) g/dL Lipase 67 (23-300) U/L Urine Color (Yellow) Urine Appearance (Clear) Urine pH (4.6-8.0) Ur Specific [place] (1.005-1.030) Urine Protein (Negative) Urine Glucose (UA) (Negative) mg/dL Urine Ketones (Negative) Urine Blood (Negative) Urine Nitrite (Negative) Urine Bilirubin (Negative) Urine Urobilinogen (0.2) mg/dL Ur Leukocyte Esterase (Negative) U Hyaline Cast (Auto) (0-2) /LPF Urine Microscopic RBC (0-5) /HPF Urine Microscopic WBC (0-5) /HPF Ur Epithelial Cells (None Seen) /HPF Urine Bacteria (None Seen) /HPF Urine Culture Reflexed (NO) - Progress Progress: improved, re-examined Progress Note: 09/02/22 17:31 76 years old is evaluated for upper abdominal pain after having fried chicken yesterday with associated nausea and vomiting. Patient has negative Hernandez sign. Patient has history of cholecystitis in the past needing cholecystectomy but because of not being able to be cleared medically from cardiac standpoint getting supportive/symptomatic treatment. Has normal white count, fairly unremarkable chemistries and CT did not show signs of acute cholecystitis. Patient is given pain medication along with fluids and on reevaluation feeling much better and pain-free. No peritoneal signs on repeated evaluations. I would give him a few pain pills to go home and outpatient follow-up with his primary surgeon and primary care along with cardiology recommended. Discussed signs symptoms of worsening needing return to ER which he seems understanding. Counseled pt/family regarding: lab results, diagnosis, need for follow-up, rad results Medical Desision Making - Discussion of managment Reviewed:: Test results, Need for additional workup Agreed on:: Treatment plan, need for follow-up - Diagnostic Testing Diagnostic test were ordered, analyzed, and reviewed by me: Yes Radiological Interpretation: Reviewed by me - Risk of complications The pt has a mod risk of morbidity or mortality based on: Need for prescription drug management The pt has a high risk of morbidity or mortality based on: Need for major surger y in patient with known risk factors - Departure Departure Disposition: Home Clinical Impression: Biliary colic Condition: Stable Critical Care Time: No Referrals: [facility]OSPITAL,'S [Primary Care Provider] - Follow up/PCP as directed SOFIA BIRCH [ACTIVE STAFF] - Follow up/PCP as directed (1-2 days for reevaluation) Instructions: Severe Abdominal Pain, Adult (DC) Additional Instructions: Follow-up with primary care and general surgery for reevaluation. Keep appointment with cardiology. Return to ER for intractable pain/nausea vomiting. Take pain medications only as needed. Prescriptions: Hydrocodone/Acetaminophen [Hydrocodone-Acetamin 5-325 mg] 1 tab PO Q6HPRN PRN 3 Days #7 tablet MDD 4 PRN Reason: Pain Tramadol HCl 50 mg [Ultram 50 mg] 50 mg PO Q6HPRN PRN 3 Days #7 tablet PRN Reason: Pain
[2022-09-02 17:56] VITALS: BP 134/87
== END 2022-09-02 17:57 | disposition home or self-care (01) ==
LOC: ED 13:41
DX: K80.51 Calculus of bile duct without cholangitis or cholecystitis with obstruction (principal); I10 Essential (primary) hypertension; E11.9 Type 2 diabetes mellitus without complications; E78.5 Hyperlipidemia, unspecified; I25.10 Atherosclerotic heart disease of native coronary artery without angina pectoris; Z95.1 Presence of aortocoronary bypass graft; Z79.01 Long term (current) use of anticoagulants; Z79.899 Other long term (current) drug therapy; Z20.828 Contact with and (suspected) exposure to other viral communicable diseases
CPT/HCPCS: 36000; 36415; 74176; 80053; 81001; 82947; 83690; 84484; 85025; 93005; 96374; 96375; 96376; 99284; J2270; J2405

== ENCOUNTER 2023-02-10 19:29 | Emergency (ER) | payer MEDICARE, OTHER ==
[2023-02-10 19:47] VITALS: TEMP 97.2
[2023-02-10] MEDS ORDERED: Hydromorphone 1 mg/ml Injection IV ONE (20:11)
[2023-02-10] MEDS ORDERED: Zofran 4 MG/2 ML VIAL IV ONE (20:11)
[2023-02-10] MEDS ORDERED: Zofran 4 MG/2 ML VIAL ONE (20:18)
[2023-02-10] MEDS ORDERED: Hydromorphone 1 mg/ml Injection ONE (20:20)
[2023-02-10 20:21] LABS: Absolute Neutrophil Ct (ANC) 13.05 x10^3/uL (1.4-6.9); BASOPHIL % 0.5 % (0.0-0.4); Basophil (Absolute #) 0.07 x10^3/uL (0-0.4); Eosinophil % 0.1 % (0.00-5.0); Eosinophil (Absolute #) 0.02 x10^3/uL (0-0.5); Hematocrit 47.9 % (42-50); Hemoglobin 16.1 g/dL (12.5-18.0); IMMATURE GRAN # 0.11 x10^3u/L (0.00-0.03); IMMATURE GRAN % 0.7 % (0.00-0.4); Lymphocyte (Absolute #) 1.26 x10^3/uL (1.0-4.6); Lymphocytes % 8.2 % (24.0-44.0); Mean Cell Volume 93.4 fL (78-100); Mean Corpuscular Hemoglobin 31.4 pg (26-32); Mean Corpuscular Hgb Concent. 33.6 g/dL (32-36); Mean Platelet Volume 10.9 fL (7.5-11.0); Monocyte (Absolute #) 0.86 x10^3/uL (0.0-1.3); Monocytes % 5.6 % (0.0-12.0); Neutrophil % 84.9 % (36.0-66.0); Platelet Count 237 x10^3/uL (150-450); Red Blood Count 5.13 x10^6/uL (4.1-5.6); Red Cell Distribution Width 13.1 % (11.5-14.0); White Blood Count 15.4 x10^3/uL (4.0-10.5)
[2023-02-10 20:35] LABS: ALBUMIN 4.5 g/dL (3.5-5.0); ALKALINE PHOSPHATASE 75 U/L (38-126); ANION GAP 12.5 MEQ/L (5-15); BLOOD UREA NITROGEN 13 mg/dL (9-20); CHLORIDE 102 mmol/L (98-107); Calcium 9.1 mg/dL (8.4-10.2); Carbon Dioxide 27 mmol/L (22-30); EST GLOMERULAR FILTRATION RATE > 60.0 ML/MIN; Glucose 131 mg/dL (74-106); LIPASE 69 U/L (23-300); Potassium 4.1 mmol/L (3.5-5.1); SGOT/AST 30 U/L (17-59); SGPT/ALT 25 U/L (0-50); SODIUM 138 mmol/L (137-145); Total Protein 7.2 g/dL (6.3-8.2)
[2023-02-10] MEDS ORDERED: NORCO 5/325 MG PO ONE (21:52)
--- NOTE | 2023-02-10 21:53 | ERPHSYRPT ---
- History of Present Illness Time Seen by Provider: 02/10/23 19:31 Historian: patient Exam Limitations: no limitations Patient Subjective Stated Complaint: pt states he has gallbladder problems but is unable to have surgery d/t heart problems. states pain in upper abd started agian last night and has not gotten better Triage Nursing Assessment: pt alert and oriented, answers questions approp. pt ambulates into room with steady gait noted. respirations nonlabored. skin warm and dry. abd soft. pt reports mild tenderness to upper abd with palpation. bowel sounds present x4 Physician History: 77-year-old male with history of coronary artery disease status post stenting, hypertension, hyperlipidemia, chronic epigastric/right upper quadrant pain presented in the ER with chief complaint of upper abdominal pain since last night after dinner. Patient reports dull aching to sharp pain across upper abdomen with associated nausea and dry appearing but no vomiting. Denies any diarrhea or constipation. No chest pain palpitations or shortness of breath. Patient reports having similar symptoms multiple times in the past and has gallstone/sludge but cannot go for cholecystectomy because of recent stents placement. No fever or chills reported. Allergies/Adverse Reactions: morphine Allergy (Intermediate, Verified 02/10/23 19:37) Rash codeine Allergy (Unknown, Verified 02/10/23 19:37) Home Medications: Esomeprazole Magnesium [Nexium] 10 mg PO DAILY PRN PRN 02/03/16 [History] Irbesartan 150 mg [Avapro 150 MG] 150 mg PO DAILY 02/03/16 [History] Aspirin EC 81 mg [Ecotrin 81 mg] 81 mg PO DAILY 03/19/18 [History] Clopidogrel Bisulfate [PLAVIX 75 MG Tablet] 75 mg PO DAILY 03/19/18 [History] Isosorbide Mononitrate 30 mg [Imdur 30 MG] 30 mg PO DAILY 03/19/18 [History] Calcium Carbonate/Vitamin D3 [Calcium 600 mg-D3 10 Mcg Sfgl] 1 each PO DAILY 06/16/22 [History] Dulaglutide [Trulicity] 1.5 mg SQ UD 06/16/22 [History] Famotidine [Pepcid] 40 mg PO DAILY 06/16/22 [History] Nitroglycerin 0.4 mg SL Q5MIN PRN MR X 3 PRN 06/16/22 [History] Omeg3/Dha/Epa/Fish Oil/L.casei [Restora Capsule] 1 each PO DAILY 06/16/22 [History] Risedronate Sodium 35 mg PO DAILY 06/16/22 [History] Silodosin [Rapaflo] 8 mg PO DAILY 06/16/22 [History] Metoprolol Succinate 25 mg Xl* [Toprol-Xl 25MG Tablets] 25 mg PO DAILY 09/02/22 [History] Hx Tetanus, Diphtheria Vaccination/Date Given: Yes Hx Influenza Vaccination/Date Given: No Hx Pneumococcal Vaccination/Date Given: Yes Immunizations Up to Date: Yes Travel Risk - International Travel Have you traveled outside of the country in past 3 weeks: No - Coronavirus Screening Are you exhibiting any of the following symptoms?: No Close contact with a COVID-19 positive Pt in past 14-21 Days: No - Vaccine Status Have you recieved a Covid-19 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: 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[employer] - Vaccination Dates Date of 2cond Vaccination (if applicable): 2020 - Review of Systems Constitutional: No Symptoms Ears, Nose, & Throat: No Symptoms Respiratory: No Symptoms Cardiac: No Symptoms Abdominal/Gastrointestinal: Abdominal Pain, Nausea Genitourinary Symptoms: No Symptoms Musculoskeletal: Arthralgias Skin: No Symptoms Neurological: No Symptoms Hematologic/Lymphatic: No Symptoms - Past Medical History Pertinent Past Medical History: Yes Neurological History: No Pertinent History ENT History: No Pertinent History Cardiac History: Coronary Artery Disease, High Cholesterol, Hypertension, Myocardial Infarction ([place]) Respiratory History: No Pertinent History Endocrine Medical History: Diabetes Type II Musculoskeletal History: No Pertinent History GI Medical History: GERD History: No Pertinent History Psycho-Social History: No Pertinent History Male Reproductive Disorders: No Pertinent History Other Medical History: exposed to agent orange - Past Surgical History Past Surgical History: Yes Cardiac: CABG, Cardiac Catheterization, Cardiac Stent Respiratory: No Pertinent History Gastrointestinal: Appendectomy Genitourinary: No Pertinent History Musculoskeletal: No Pertinent History Male Surgical History: No Pertinent History Other Surgical History: 5 vessel bypass, 5 stents. heart cath. heart cath with stents 4-6 weeks ago - Social History Smoking Status: Never smoker Exposure to second hand smoke: No Alcohol Use: None Drug Use: none Patient Lives Alone: Yes Significant Family History: no pertinent family hx - Nursing Vital Signs Nursing Vital Signs: Initial Vital Signs Temperature 97.2 F 02/10/23 19:38 Pulse Rate 82 02/10/23 19:38 Respiratory Rate 16 02/10/23 19:38 Blood Pressure 160/89 02/10/23 19:38 O2 Sat by Pulse Oximetry 99 02/10/23 19:38 Pain Scale Pain Intensity 2 - Physical Exam General Appearance: no apparent distress, alert Eye Exam: PERRL/EOMI Ears, Nose, Throat Exam: normal ENT inspection Neck Exam: normal inspection, supple, full range of motion Respiratory Exam: normal breath sounds, lungs clear Cardiovascular Exam: regular rate/rhythm, normal heart sounds Gastrointestinal/Abdomen Exam: soft, normal bowel sounds, tenderness (Upper abdomen) Back Exam: normal inspection, normal range of motion Extremity Exam: normal inspection Neurologic Exam: alert, 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, cooperative Skin Exam: normal color SpO2 Interpretation: normal SpO2: 95 O2 Delivery: Room Air Ordered Tests: Active Orders 24 hr Category Date Time Status IV Insertion STAT Care 02/10/23 20:11 Active NPO (ED) STAT Care 02/10/23 20:11 Active ABDOMEN AND PELVIS W/0 CONTRAS [CT] Stat Exams 02/10/23 20:30 Taken CBC W DIFF Stat Lab 02/10/23 20:15 Completed CMP Stat Lab 02/10/23 20:15 Completed LIPASE Stat Lab 02/10/23 20:15 Completed TROPONIN Q4H Lab 02/10/23 20:15 Completed TROPONIN Q4H Lab 02/11/23 00:15 Ordered TROPONIN Q4H Lab 02/11/23 04:15 Ordered Medication Summary Discontinued Medications Generic Name Dose Route Start Last Admin Trade Name Richi PRN Reason Stop Dose Admin Hydrocodone Bitart/Acetaminophen 2 tab 02/10/23 21:52 02/10/23 21:55 Hydrocodone/Apap 5/325 1 Tab Tablet PO 02/10/23 21:53 2 tab SENT HOME W/ PATIENT ONE Administration Hydromorphone HCl 0.5 mg 02/10/23 20:11 02/10/23 20:21 Hydromorphone 1 Mg/1ml Inj IV 02/10/23 20:12 0.5 mg STAT ONE Administration Hydromorphone HCl Confirm 02/10/23 20:20 Hydromorphone 1 Mg/1ml Inj Administered 02/10/23 20:21 Dose 1 mg .ROUTE .STK-MED ONE Ondansetron HCl 4 mg 02/10/23 20:11 02/10/23 20:22 Ondansetron Hcl 4 Mg/2 Ml Vial IV 02/10/23 20:12 4 mg STAT ONE Administration Ondansetron HCl Confirm 02/10/23 20:18 Ondansetron Hcl 4 Mg/2 Ml Vial Administered 02/10/23 20:19 Dose 4 mg .ROUTE .STK-MED ONE Lab/Rad Data: Laboratory Result Diagrams 02/10/23 20:15 02/10/23 20:15 Laboratory Results 02/10/23 02/10/23 02/10/23 Range/Units 20:15 20:15 20:15 WBC 15.4 H (4.0-10.5) x10^3/uL RBC 5.13 (4.1-5.6) x10^6/uL Hgb 16.1 (12.5-18.0) g/dL Hct 47.9 (42-50) % MCV 93.4 (78-100) fL MCH 31.4 (26-32) pg MCHC 33.6 (32-36) g/dL RDW 13.1 (11.5-14.0) % Plt Count 237 (150-450) x10^3/uL MPV 10.9 (7.5-11.0) fL Gran % 84.9 H (36.0-66.0) % Immature Gran % (Auto) 0.7 H (0.00-0.4) % Nucleat RBC Rel Count 0.0 (0.00-0.1) % Eos # (Auto) 0.02 (0-0.5) x10^3/uL Immature Gran # (Auto) 0.11 H (0.00-0.03) x10^3u/L Absolute Lymphs (auto) 1.26 (1.0-4.6) x10^3/uL Absolute Monos (auto) 0.86 (0.0-1.3) x10^3/uL Absolute Nucleated RBC 0.00 (0.00-0.01) x10^3u/L Lymphocytes % 8.2 L (24.0-44.0) % Monocytes % 5.6 (0.0-12.0) % Eosinophils % 0.1 (0.00-5.0) % Basophils % 0.5 (0.0-0.4) % Absolute Granulocytes 13.05 H (1.4-6.9) x10^3/uL Basophils # 0.07 (0-0.4) x10^3/uL Sodium 138 (137-145) mmol/L Potassium 4.1 (3.5-5.1) mmol/L Chloride 102 (98-107) mmol/L Carbon Dioxide 27 (22-30) mmol/L Anion Gap 12.5 (5-15) MEQ/L BUN 13 (9-20) mg/dL Creatinine 1.10 (0.66-1.25) mg/dL Estimated GFR > 60.0 ML/MIN Glucose 131 H (74-106) mg/dL Calcium 9.1 (8.4-10.2) mg/dL Total Bilirubin 1.20 (0.2-1.3) mg/dL AST 30 (17-59) U/L ALT 25 (0-50) U/L Alkaline Phosphatase 75 (38-126) U/L Troponin I 0.015 (0.000-0.034) ng/mL Serum Total Protein 7.2 (6.3-8.2) g/dL Albumin 4.5 (3.5-5.0) g/dL Lipase 69 (23-300) U/L - Progress Progress: improved, re-examined Progress Note: 02/10/23 21:48 77-year-old male with history of coronary artery disease status post stenting, hypertension, hyperlipidemia, chronic epigastric/right upper quadrant pain presented in the ER with chief complaint of upper abdominal pain since last n ight after dinner. Patient reports dull aching to sharp pain across upper abdomen with associated nausea and dry appearing but no vomiting. Denies any diarrhea or constipation. No chest pain palpitations or shortness of breath. Patient reports having similar symptoms multiple times in the past and has gallstone/sludge but cannot go for cholecystectomy because of recent stents placement. No fever or chills reported. He is given symptomatic treatment, on reevaluation feeling better. Work-up showed white count of 15, fairly unremarkable chemistries, normal liver enzymes and lipase. I have obtained CT abdomen pelvis without contrast which showed gallbladder sludge with no findings of acute cholecystitis/pancreatitis. Patient has no peritoneal signs on repeated evaluation. Patient cannot undergo surgery recently. He is advised to follow strict diet plan for gallstones. Discussed signs symptoms of worsening needing return to ER which he seems understanding. Stable for discharge. Counseled pt/family regarding: lab results, diagnosis, need for follow-up, rad results Medical Desision Making - Diagnostic Testing Diagnostic test were ordered, analyzed, and reviewed by me: Yes Radiological Interpretation: Reviewed by me - Risk of complications The pt has a mod risk of morbidity or mortality based on: Need for prescription drug management - Departure Departure Disposition: Home Clinical Impression: Biliary colic Condition: Stable Critical Care Time: No Referrals: [facility]OSP[facility],'S [Primary Care Provider] - Follow up/PCP as directed Instructions: Severe Abdominal Pain, Adult (DC), Gallbladder Diet Additional Instructions: Follow strict dietary plan for gallstones. Follow-up with your primary surgeon and primary care for reevaluation. Return to ER for worsening pain, intractable nausea vomiting etc.
[2023-02-10] MEDS ORDERED: NORCO 5/325 MG ONE (21:55)
[2023-02-10 22:11] VITALS: BP 131/74; PULSE 84; RESP 16; O2SAT 97
--- NOTE | 2023-02-11 08:44 | XRAY ---
Indication: Upper abdomen pain. Multiple contiguous axial images obtained through the abdomen and pelvis without contrast. Comparison: September 02, 2022 Lung bases again demonstrate minimal dependent atelectasis. No infiltrate or effusion. Heart not enlarged again with extensive coronary calcifications. Noncontrasted stomach and bowel loops appear nonobstructed again with appendectomy. Again mild scattered left hemicolon diverticulosis, tiny gallbladder sludge, left lobe hepatic cyst/hemangioma, right renal cysts, enlarged prostate gland, and tiny hepatic/splenic calcified granulomas. No free fluid/air. Remaining liver, gallbladder, pancreas, spleen, adrenal glands, kidneys, ureters, and bladder are unremarkable for noncontrast exam. Mild scattered aortoiliac calcifications. Osseous structures intact again with osteopenia and mild degenerative changes throughout the spine and both hips. Stable small fatty left inguinal hernia. Impression: 1. Again chronic findings including arteriosclerotic disease, colonic diverticulosis, gallbladder sludge, hepatic cyst/hemangioma, right renal cyst, enlarged prostate gland, chronic bony findings, fatty left inguinal hernia, and old granulomatous disease. 2. Remaining CT abdomen/pelvis without contrast exam is negative.
== END 2023-02-10 22:03 | disposition home or self-care (01) ==
LOC: ED 19:29
DX: K80.50 Calculus of bile duct without cholangitis or cholecystitis without obstruction (principal); R10.10 Upper abdominal pain, unspecified; R11.0 Nausea; E78.5 Hyperlipidemia, unspecified; I10 Essential (primary) hypertension; E11.9 Type 2 diabetes mellitus without complications; Z79.02 Long term (current) use of antithrombotics/antiplatelets; Z79.85 Long-term (current) use of injectable non-insulin antidiabetic drugs; Z79.899 Other long term (current) drug therapy
CPT/HCPCS: 36000; 36415; 74176; 80053; 83690; 84484; 85025; 96374; 96375; 99284; J1170; J2405; A9270-GY